=== PATIENT | female | born 1965 | race Caucasian/White ===

== ENCOUNTER → 2016-09-29 | Outpatient (CLI) | payer BC ==
--- NOTE | 2016-10-03 14:30 | MY ---
EXAMINATION: Bilateral digital mammography utilizing CAD. HISTORY: Screening exam. Comparison is made to previous studies dated 08/01/2011, 08/28/2012, 014, 09/19/2014. FINDINGS: Bilateral heterogeneously dense breast tissue. No suspicious calcifications, masses or architectural distortions. No pathologic appearing lymph nodes, no abnormal skin thickening or nip ple inversion. CAD highlighted regions appear normal at this time. IMPRESSION: BI-RADS category I - negative mammogram. Continued screening according to ACR-ACS gu idelines suggested. THE FALSE-NEGATIVE RATE OF MAMMOGRAM IS APPROXIMATELY 10%. MANAGEMENT OF A PALPABLE ABNORMALITY MUST BE BASED UPON CLINICAL GROUNDS. SENSITIVITY FOR DETECTION OF ABNORMALITIES IN DENSE BREASTS IS LOW. NOTE: A letter will be sent to the patient regarding findings. [facility] -- MAHI Barnhart [phone] - FAX [phone]
== END ==
LOC: MW.MAM 15:51
PROVIDERS: ATTEND Nurse Practitioner Women's Health
DX: Z12.31 Encounter for screening mammogram for malignant neoplasm of breast (principal)
CPT/HCPCS: G0202; G0202-26

== ENCOUNTER 2017-07-21 07:22 | Day surgery (SDC) | payer BC ==
[2017-07-21] MEDS ORDERED: Bupivacaine 25%/EPINEPHrine/PF 30 ML ONE (07:24)
[2017-07-21] MEDS ORDERED: Lidocaine 2% 5 ML SDV ONE (07:25)
[2017-07-21] MEDS ORDERED: Midazolam 1 MG/ML 2 ML SDV ONE (07:25)
[2017-07-21] MEDS ORDERED: Propofol 200 MG/20 ML SDV ONE (07:25)
[2017-07-21] MEDS ORDERED: fentaNYL 100 MCG/2 ML SDV ONE (07:25)
--- NOTE | 2017-07-21 07:53 | PCM.PREANE ---
Preanesthetic Assessment - Anesthesia/Transfusion/Family Hx Anesthesia History: Prior Anesthesia Without Reaction Family History of Anesthesia Reaction: No Transfusion History: No Prior Transfusion(s) Intubation History: Unknown - Review of Systems General: No Symptoms Pulmonary: No Symptoms Cardiovascular: No Symptoms Gastrointestinal: No Symptoms Neurological: No Symptoms Other: Reports: None - Physical Assessment Height: 1.5 m Weight: 48.534 kg ASA Class: 2 Mental Status: Alert & Oriented x3 Airway Class: Mallampati = 2 Dentition: Reports: Dentures (upper and lower) Thyro-Mental Finger Breadths: 3 Mouth Opening Finger Breadths: 3 ROM/Head Extension: Full Lungs: Clear to Auscultation, Normal Respiratory Effort Cardiovascular: Regular Rate, Regular Rhythm - Allergies Allergies/Adverse Reactions: Allergies Allergy/AdvReac Type Severity Reaction Status Date / Time Sulfa (Sulfonamide Allergy Hives Verified 07/19/17 07:52 Antibiotics) - Blood Blood Available: No - Anesthesia Plan Pre-Op Medication Ordered: None - Acknowledgements Anesthesia Type Planned: MAC Pt an Appropriate Candidate for the Planned Anesthesia: Yes Alternatives and Risks of Anesthesia Discussed w Pt/Guardian: Yes Pt/Guardian Understands and Agrees with Anesthesia Plan: Yes PreAnesthesia Questionnaire HEENT History: Reports: Allergic Rhinitis, Other (See Below) Other HEENT History: wears glasssess/contacts, has top and bottom denture Cardiovascular History: Reports: Hypertension Gastrointestinal History: Reports: GERD, Irritable Bowel Syndrome Genitourinary History: Reports: None 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: Psychiatric History: Reports: Anxiety, Depression - Past Surgical History Head Surgeries/Procedures: Reports: None GI Surgical History: Reports: Colonoscopy Female Surgical History: Reports: Section, Tubal Ligation - SUBSTANCE USE Smoking Status *Q: Current Every Day Smoker (< 1/2 ppd) Tobacco Use Within Last Twelve Months: Cigarettes Recreational Drug Use History: No - HOME MEDS Home Medications: Home Meds Diclofenac Sodium 1 applic TOP ASDIRECTED PRN 07/19/17 [History] Escitalopram Oxalate 5 mg PO DAILY 07/19/17 [History] Fexofenadine/Pseudoephedrine [Alisha-D 24 Hour Tablet] 1 tab PO ASDIRECTED PRN 07/19/17 [History] Loratadine/Pseudoephedrine [Claritin-D 24 Hour Tablet] 1 tab PO ASDIRECTED PRN 07/19/17 [History] Losartan Potassium 12.5 mg PO DAILY 07/19/17 [History] MV,Ca,Min/FA/Herbal Comp #223 [Estroven Mood & Memory Caplet] 1 tab PO DAILY [History] Pantoprazole Sodium 40 mg PO DAILY 07/19/17 [History] - CURRENT (IN HOUSE) MEDS Current Meds: Current Medications Hydrocodone Bitart/Acetaminophen (Sims 325-5 Mg) 1 tab PO Q4H PRN PRN Reason: Pain Bupivacaine HCl/Epinephrine Bitart (Marcaine 0.25%/Epinephrine 1:200,000) 10 ml INJECT ONETIME ONE Stop: 07/21/17 08:01 Cefazolin Sodium/Dextrose 2 gm (/ Premix) 50 mls @ 100 mls/hr IV ONETIME ONE Stop: 07/21/17 08:29 Lactated Ringer's (Ringers, Lactated) 1,000 mls @ 500 mls/hr IV .BOLUS KALE Discontinued Medications Fentanyl (Sublimaze) Confirm Administered Dose 100 mcg .ROUTE .STK-MED ONE Stop: 07/21/17 07:26 Bupivacaine HCl/Epinephrine Bitart (Sensorc Mpf 0.25%-Epi 1:[id number]) Confirm Administered Dose 30 mls @ as directed .ROUTE .STK-MED ONE Stop: 07/21/17 07:25 Lidocaine (Xylocaine-Mpf 2%) Confirm Administered Dose 5 ml .ROUTE .STK-MED ONE Stop: 07/21/17 07:26 Midazolam HCl (Versed 1 Mg/Ml) Confirm Administered Dose 2 mg .ROUTE .STK-MED ONE Stop: 07/21/17 07:26 Propofol (Diprivan 20 Ml) Confirm Administered Dose 400 mg .ROUTE .STK-MED ONE Stop: 07/21/17 07:26
[2017-07-21] MEDS ORDERED: Bupivacaine 0.25%/EPINEPHrine 1:200,000 10 ML SDV INJECT ONE (08:00)
[2017-07-21] MEDS ORDERED: ceFAZolin 2 GM in Premix Bag 1 BAG IV ONE (08:00)
[2017-07-21] MEDS ORDERED: Lactated Ringers 1,000 ML IV SCH (08:00)
[2017-07-21] MEDS ORDERED: Acetaminophen/HYDROcodone 325-5 MG Tab PO PRN (08:00)
--- NOTE | 2017-07-21 15:10 | PCM.OPNOTE ---
- General Post-Op/Procedure Note Date of Surgery/Procedure: 07/21/17 Operative Procedure(s): right carpal tunnel release Pre Op Diagnosis: right carpal tunnel Post-Op Diagnosis: Same Anesthesia Technique: Local, MAC Primary Surgeon: Hannah Bourgeois Labor Relations Worker: Brandie Mccollum Complications: None Condition: Good Free Text/Narrative:: Intake & Output 07/20/17 07/21/17 07/21/17 23:59 07:59 15:59 Intake Total 600 Balance 600
--- NOTE | 2017-07-25 22:03 | OR ---
SURGEON: MINNIE ANTOINE MD DATE OF PROCEDURE: 07/21/2017 PREOPERATIVE DIAGNOSIS: Right carpal tunnel syndrome. POSTOPERATIVE DIAGNOSIS: Right carpal tunnel syndrome. PROCEDURE: Right carpal tunnel release. POLE PEELING MACHINE OPERATOR HELPER: MEGAN Mccloud REASON POLE PEELING MACHINE OPERATOR HELPER WAS NECESSARY: Retraction, prepping, draping, and closure assistance. ANESTHESIA: Local MAC. INDICATIONS: Ms. Christianson is a 52-year-old female, seen today for right carpal tunnel syndrome. Risks and benefits of release were discussed and she was in agreement to proceed. Risks were including, but not limited to, bleeding, infection, damage to underlying or overlying structures, possible need for future interventions, possible scarring. PROCEDURE IN DETAIL: After informed consent was obtained and placed on the chart, the patient was brought to the operating theater and laid in the supine position. After adequate local MAC anesthesia was obtained, the area was prepped and draped, and a time-out was completed to confirm side and site. Attention was then paid to exsanguination and insufflation of the tourniquet to 200 mmHg. Attention was then paid to dissection of the transverse carpal ligament, and dissection was carried through the skin and subcutaneous tissues using #15 blade until reach of the ligament. Dissection was then carried distally and proximally until complete release. Once adequately released, attention was paid to irrigation and then closure using a 5-0 nylon stitch in a horizontal mattress fashion. The wound was dressed with Xeroform fluffs and a Kerlix gauze dressing and a 2-inch Zeferino wrap. The patient tolerated this well. All counts and needles were correct at the end of the case. FOLLOWUP INSTRUCTIONS: The patient will see us in clinic in 10 to 14 days, sooner if any problems, questions, or concerns. MADHURI / JATIN /[id number]
== END 2017-07-21 10:15 | disposition home or self-care (01) ==
LOC: MW.SDS 07:22
PROVIDERS: ATTEND Plastic Surgery
DX: G56.01 Carpal tunnel syndrome, right upper limb (principal); F41.8 Other specified anxiety disorders; K21.9 Gastro-esophageal reflux disease without esophagitis; I10 Essential (primary) hypertension; Z88.2 Allergy status to sulfonamides; J30.2 Other seasonal allergic rhinitis; Z79.899 Other long term (current) drug therapy; F17.200 Nicotine dependence, unspecified, uncomplicated
CPT/HCPCS: 64721; J2250; J3010; J7120; 01810; J2704

== ENCOUNTER 2017-08-04 06:16 | Day surgery (SDC) | payer BC ==
[2017-08-04] MEDS ORDERED: Bupivacaine 25%/EPINEPHrine/PF 0 ML ONE (07:20)
--- NOTE | 2017-08-04 07:20 | PCM.PREANE ---
Preanesthetic Assessment - Anesthesia/Transfusion/Family Hx Anesthesia History: Prior Anesthesia Without Reaction Family History of Anesthesia Reaction: No Transfusion History: No Prior Transfusion(s) Intubation History: Unknown - Review of Systems General: No Symptoms Pulmonary: No Symptoms Cardiovascular: No Symptoms Gastrointestinal: No Symptoms Neurological: No Symptoms Other: Reports: None - Physical Assessment NPO Status Date: 08/03/17 NPO Status Time: 22:00 O2 Sat by Pulse Oximetry: 98 Respiratory Rate: 14 Vital Signs: Last Vital Signs Temp 36.7 C 08/04/17 06:30 Pulse 73 08/04/17 06:30 Resp 14 08/04/17 06:30 BP 133/64 08/04/17 06:30 Pulse Ox 98 08/04/17 06:30 Height: 1.5 m Weight: 48.534 kg ASA Class: 2 Mental Status: Alert & Oriented x3 Airway Class: Mallampati = 1 Dentition: Reports: Dentures ROM/Head Extension: Full Lungs: Clear to Auscultation, Normal Respiratory Effort Cardiovascular: Regular Rate, Regular Rhythm - Allergies Allergies/Adverse Reactions: Allergies Allergy/AdvReac Type Severity Reaction Status Date / Time Sulfa (Sulfonamide Allergy Hives Verified 08/03/17 08:47 Antibiotics) - Anesthesia Plan Pre-Op Medication Ordered: None - Acknowledgements Anesthesia Type Planned: MAC Pt an Appropriate Candidate for the Planned Anesthesia: Yes Alternatives and Risks of Anesthesia Discussed w Pt/Guardian: Yes Pt/Guardian Understands and Agrees with Anesthesia Plan: Yes PreAnesthesia Questionnaire HEENT History: Reports: Allergic Rhinitis, Other (See Below) Other HEENT History: wears glasssess/contacts, has top and bottom denture Cardiovascular History: Reports: Hypertension Gastrointestinal History: Reports: GERD, Irritable Bowel Syndrome Genitourinary History: Reports: None 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: Musculoskeletal History: Reports: None Neurological History: Reports: None Psychiatric History: Reports: Anxiety, Depression Endocrine/Metabolic History: Reports: None Hematologic History: Reports: None Immunologic History: Reports: None Oncologic (Cancer) History: Reports: None Dermatologic History: Reports: None - Past Surgical History Head Surgeries/Procedures: Reports: None GI Surgical History: Reports: Colonoscopy Female Surgical History: Reports: Section, Tubal Ligation Musculoskeletal Surgical History: Reports: Carpal Tunnel - SUBSTANCE USE Smoking Status *Q: Current Every Day Smoker Tobacco Use Within Last Twelve Months: Cigarettes Recreational Drug Use History: No - HOME MEDS Home Medications: Home Meds Diclofenac Sodium 1 applic TOP ASDIRECTED PRN 07/19/17 [History] Escitalopram Oxalate 5 mg PO DAILY 07/19/17 [History] Fexofenadine/Pseudoephedrine [Alisha-D 24 Hour Tablet] 1 tab PO ASDIRECTED PRN 07/19/17 [History] Loratadine/Pseudoephedrine [Claritin-D 24 Hour Tablet] 1 tab PO ASDIRECTED PRN 07/19/17 [History] Losartan Potassium 12.5 mg PO DAILY 07/19/17 [History] MV,Ca,Min/FA/Herbal Comp #223 [Estroven Mood & Memory Caplet] 1 tab PO DAILY [History] Pantoprazole Sodium 40 mg PO DAILY 07/19/17 [History] - CURRENT (IN HOUSE) MEDS Current Meds: Current Medications Hydrocodone Bitart/Acetaminophen (Roy 325-5 Mg) 1 tab PO Q4H PRN PRN Reason: Pain Bupivacaine HCl/Epinephrine Bitart (Marcaine 0.25%/Epinephrine 1:200,000) 10 ml INJECT ONETIME ONE Stop: 08/04/17 08:01 Cefazolin Sodium/Dextrose 2 gm (/ Premix) 50 mls @ 100 mls/hr IV ONETIME ONE Stop: 08/04/17 08:29 Lactated Ringer's (Ringers, Lactated) 1,000 mls @ 500 mls/hr IV .BOLUS KALE
[2017-08-04] MEDS ORDERED: Bupivacaine 25%/EPINEPHrine/PF 30 ML ONE (07:27)
[2017-08-04] MEDS ORDERED: Midazolam 1 MG/ML 2 ML SDV ONE (07:28)
[2017-08-04] MEDS ORDERED: Propofol 200 MG/20 ML SDV ONE (07:28)
[2017-08-04] MEDS ORDERED: Lidocaine 2% 5 ML SDV ONE (07:28)
[2017-08-04] MEDS ORDERED: ceFAZolin/Dextrose,Iso-Osmotic 2 GM/50 ML Duplex Bag IV ONE (07:29)
[2017-08-04] MEDS ORDERED: fentaNYL 100 MCG/2 ML SDV ONE (07:31)
[2017-08-04] MEDS ORDERED: Ondansetron 4 MG/2 ML SDV ONE (07:45)
[2017-08-04] MEDS ORDERED: Ketorolac 30 MG/ML SDV ONE (07:45)
[2017-08-04] MEDS ORDERED: Lactated Ringers 1,000 ML IV SCH (08:00)
[2017-08-04] MEDS ORDERED: Acetaminophen/HYDROcodone 325-5 MG Tab PO PRN (08:00)
[2017-08-04] MEDS ORDERED: Bupivacaine 0.25%/EPINEPHrine 1:200,000 10 ML SDV INJECT ONE (08:00)
[2017-08-04] MEDS ORDERED: ceFAZolin 2 GM in Premix Bag 1 BAG IV ONE (08:00)
[2017-08-04] MEDS ORDERED: fentaNYL 100 MCG/2 ML SDV IVPUSH PRN (08:33)
--- NOTE | 2017-08-04 10:38 | PCM48HPAN ---
Post Anesthesia Note - EVALUATION WITHIN 48HRS OF ANESTHETIC Vital Signs in Normal Range: Yes Patient Participated in Evaluation: Yes Respiratory Function Stable: Yes Airway Patent: Yes Cardiovascular Function Stable: Yes Hydration Status Stable: Yes Pain Control Satisfactory: Yes Nausea and Vomiting Control Satisfactory: Yes Mental Status Recovered: Yes Resp Rate: 12
--- NOTE | 2017-08-04 10:38 | PCM.POSTAN ---
POST ANESTHESIA ASSESSMENT - MENTAL STATUS Mental Status: Alert, Oriented - RESPIRATORY Respiratory Status: Respiratory Rate WNL, Airway Patent, O2 Saturation Stable - CARDIOVASCULAR CV Status: Pulse Rate WNL, Blood Pressure Stable - GASTROINTESTINAL GI Status: No Symptoms - POST OP HYDRATION Hydration Status: Adequate & Stable
--- NOTE | 2017-08-04 11:46 | PCM.OPNOTE ---
- General Post-Op/Procedure Note Date of Surgery/Procedure: 08/04/17 Operative Procedure(s): left carpal tunnel release Pre Op Diagnosis: left carpal tunnel syndrome Post-Op Diagnosis: Same Anesthesia Technique: Local, MAC Primary Surgeon: Hannah Bourgeois Home Care Coordinator: Brandie Mccollum Complications: None Condition: Good Free Text/Narrative:: Intake & Output 08/03/17 08/04/17 08/04/17 23:59 07:59 15:59 Intake Total 1300 Balance 1300
--- NOTE | 2017-08-04 22:36 | OR ---
SURGEON: MINNIE ANTOINE MD DATE OF PROCEDURE: 08/04/2017 PREOPERATIVE DIAGNOSIS: Left carpal tunnel syndrome. POSTOPERATIVE DIAGNOSIS: Left carpal tunnel syndrome. PROCEDURE: Left carpal tunnel release. PROCESS CONTROL SPECIALIST: MEGAN Mccloud Reason is anesthesia assistant is prepping, draping, and closure assistance. ANESTHESIA: Local MAC. INDICATIONS: Ms. Stratton is a 52-year-old female who has previously had release on the right side. She is here for the left carpal tunnel release. Risks and benefits were discussed with her including, but not limited to, bleeding, infection, damage to underlying or overlying structures, possible need for future interventions, possible scarring. PROCEDURE IN DETAIL: After informed consent was obtained and placed on the chart, the patient was brought to operating theater and laid in the supine position. After adequate local MAC anesthesia was obtained, the area was prepped and draped, and a time- out was completed to confirm side and site. The arm was exsanguinated. The tourniquet was insufflated to 200 mmHg. A 15 blade was then used to dissect through skin and subcutaneous tissues under direct visualization. Once breached, the dissection was carried distally and proximally under continued direct visualization. Once adequately released, the area was irrigated and closed using a 5-0 nylon stitch in a horizontal mattress fashion. The wound was dressed with Xeroform fluffs and a Kerlix gauze dressing and a 2-inch Zeferino wrap. The patient tolerated this well. All counts and needles were correct at the end of the case. FOLLOWUP INSTRUCTIONS: The patient will see us in 10 to 14 days, sooner if any problems, questions, or concerns. MADHURI / JATIN /[id number]
== END 2017-08-04 09:35 | disposition home or self-care (01) ==
LOC: MW.SDS 06:16
PROVIDERS: ATTEND Plastic Surgery
DX: G56.02 Carpal tunnel syndrome, left upper limb (principal); F41.8 Other specified anxiety disorders; K21.9 Gastro-esophageal reflux disease without esophagitis; I10 Essential (primary) hypertension; M75.41 Impingement syndrome of right shoulder; N95.1 Menopausal and female climacteric states; J01.90 Acute sinusitis, unspecified; J30.2 Other seasonal allergic rhinitis; F17.210 Nicotine dependence, cigarettes, uncomplicated; Z88.2 Allergy status to sulfonamides; Z79.899 Other long term (current) drug therapy; Z98.51 Tubal ligation status
CPT/HCPCS: 64721; J0690; J1885; J2250; J2405; J3010; J7120; 01810; J2704

== ENCOUNTER 2019-10-30 06:51 | Day surgery (SDC) | payer BC, OTHER ==
[~2019-10-30 06:51] MED LIST: Lactated Ringers 1,000 ML IV SCH
[2019-10-30] MEDS ORDERED: fentaNYL 100 MCG/2 ML SDV ONE ×2 (07:14→09:14)
[2019-10-30] MEDS ORDERED: Propofol 200 MG/20 ML SDV ONE (07:14)
[2019-10-30] MEDS ORDERED: Midazolam 1 MG/ML 2 ML SDV ONE (07:15)
[2019-10-30] MEDS ORDERED: Lidocaine 2% 5 ML SDV ONE (07:17)
--- NOTE | 2019-10-30 07:24 | PCM.PREANE ---
Preanesthetic Assessment - Anesthesia/Transfusion/Family Hx Anesthesia History: Prior Anesthesia Without Reaction Family History of Anesthesia Reaction: No Transfusion History: No Prior Transfusion(s) Intubation History: Unknown - Review of Systems General: No Symptoms Pulmonary: No Symptoms Cardiovascular: No Symptoms Gastrointestinal: No Symptoms Neurological: No Symptoms Other: Reports: None - Physical Assessment Height: 4 ft 11 in Weight: 52.617 kg ASA Class: 3 Mental Status: Alert & Oriented x3 Airway Class: Mallampati = 2 Dentition: Reports: Dentures (upper and lower) Thyro-Mental Finger Breadths: 3 Mouth Opening Finger Breadths: 3 ROM/Head Extension: Full Lungs: Clear to Auscultation, Normal Respiratory Effort Cardiovascular: Regular Rate, Regular Rhythm - Allergies Allergies/Adverse Reactions: Allergies Allergy/AdvReac Type Severity Reaction Status Date / Time Sulfa (Sulfonamide Allergy Hives Verified 10/25/19 10:51 Antibiotics) - Blood Blood Available: No - Anesthesia Plan Pre-Op Medication Ordered: None - Acknowledgements Anesthesia Type Planned: General Anesthesia Pt an Appropriate Candidate for the Planned Anesthesia: Yes Alternatives and Risks of Anesthesia Discussed w Pt/Guardian: Yes Pt/Guardian Understands and Agrees with Anesthesia Plan: Yes PreAnesthesia Questionnaire HEENT History: Reports: Allergic Rhinitis, Other (See Below) Other HEENT History: wears glasssess/contacts, has top and bottom denture Cardiovascular History: Reports: High Cholesterol, Hypertension Gastrointestinal History: Reports: GERD, Irritable Bowel Syndrome, Other (See Below) (h/o elevated LFt's) Genitourinary History: Reports: None 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: Musculoskeletal History: Reports: None Neurological History: Reports: None Psychiatric History: Reports: Anxiety, Depression, Suicide Attempt Endocrine/Metabolic History: Reports: None Hematologic History: Reports: None Immunologic History: Reports: None Oncologic (Cancer) History: Reports: None Dermatologic History: Reports: None - Past Surgical History Head Surgeries/Procedures: Reports: None GI Surgical History: Reports: Colonoscopy () Female Surgical History: Reports: Section, Tubal Ligation Musculoskeletal Surgical History: Reports: Carpal Tunnel - SUBSTANCE USE Smoking Status *Q: Current Every Day Smoker (1/2 ppd) Tobacco Use Within Last Twelve Months: Cigarettes Days Per Week of Alcohol Use: 7 Recreational Drug Use History: No - HOME MEDS Home Medications: Home Meds Escitalopram Oxalate 10 mg PO DAILY 02/14/18 [History] Fexofenadine/Pseudoephedrine [Alisha-D 24 Hour Tablet] 1 tab PO ASDIRECTED PRN 07/19/17 [History] Losartan Potassium 25 mg PO QAM 07/19/17 [History] MV,Ca,Min/FA/Herbal Comp #223 [Estroven Mood and Memory Cplt] 1 tab PO DAILY [History] Pantoprazole Sodium 40 mg PO DAILY 07/19/17 [History] - CURRENT (IN HOUSE) MEDS Current Meds: Current Medications Cefazolin Sodium/Dextrose 1 gm (/ Premix) 50 mls @ 100 mls/hr IV ONETIME ONE Stop: 10/30/19 08:29 Lactated Ringer's (Ringers, Lactated) 1,000 mls @ 125 mls/hr IV ASDIRECTED KALE Discontinued Medications Fentanyl (Sublimaze) Confirm Administered Dose 100 mcg .ROUTE .STK-MED ONE Stop: 10/30/19 07:15 Lidocaine (Xylocaine-Mpf 2%) Confirm Administered Dose 5 ml .ROUTE .STK-MED ONE Stop: 10/30/19 07:18 Midazolam HCl (Versed 1 Mg/Ml) Confirm Administered Dose 2 mg .ROUTE .STK-MED ONE Stop: 10/30/19 07:16 Propofol (Diprivan 20 Ml) Confirm Administered Dose 200 mg .ROUTE .STK-MED ONE Stop: 10/30/19 07:15
[2019-10-30] MEDS ORDERED: Bupivacaine 0.5% 30 ML SDV ONE (07:31)
[2019-10-30] MEDS ORDERED: Lidocaine 1% 20 ML MDV ONE (07:32)
[2019-10-30] MEDS ORDERED: ceFAZolin 1 GM in Premix Bag 1 BAG IV ONE (08:00)
[2019-10-30] MEDS ORDERED: ePHEDrine 50 MG/ML SDV ONE (08:26)
[2019-10-30] MEDS ORDERED: Ondansetron 4 MG/2 ML SDV ONE (08:31)
[2019-10-30] MEDS ORDERED: Dexamethasone 4 MG/ML 5 ML MDV ONE (08:31)
[2019-10-30] MEDS ORDERED: Ketorolac 30 MG/ML SDV ONE (09:04)
[2019-10-30] MEDS ORDERED: Ondansetron 4 MG/2 ML SDV IVPUSH PRN (09:11)
[2019-10-30] MEDS ORDERED: fentaNYL 100 MCG/2 ML SDV IVPUSH PRN (09:12)
--- NOTE | 2019-10-30 09:57 | PCM.OPNOTE ---
- General Post-Op/Procedure Note Date of Surgery/Procedure: 10/30/19 Operative Procedure(s): excision of ganglion cyst left ankle Findings: consistent with diagnosis Pre Op Diagnosis: ganglion cyst left ankle Post-Op Diagnosis: ganglion cyst left ankle Anesthesia Technique: General LMA Primary Surgeon: Anton Ambrose Pathology: ganglion cyst tissue and fluid from left ankle EBL in mLs: 10 Complications: none Condition: Good Free Text/Narrative:: Intake & Output 10/29/19 10/30/19 10/30/19 22:59 06:59 14:59 Intake Total 950 Balance 950 materials: 4-0 vicryl, 4-0 Stratafix injectables: 6 ml 0.5% marcaine plain tourniquet time: 41 min
--- NOTE | 2019-10-30 10:10 | PCM.POSTAN ---
POST ANESTHESIA ASSESSMENT - MENTAL STATUS Mental Status: Alert, Oriented - VITAL SIGNS Vital Signs: Last Vital Signs Temp 36.2 C 10/30/19 09:27 Pulse 103 H 10/30/19 09:51 Resp 14 10/30/19 09:51 BP 145/80 H 10/30/19 09:51 Pulse Ox 98 10/30/19 09:51 - RESPIRATORY Respiratory Status: Respiratory Rate WNL, Airway Patent, O2 Saturation Stable - CARDIOVASCULAR CV Status: Pulse Rate WNL, Blood Pressure Stable - GASTROINTESTINAL GI Status: No Symptoms - PAIN Pain Score: 0 - POST OP HYDRATION Hydration Status: Adequate & Stable - OBSERVATIONS Free Text/Narrative:: No anesthesia problems.
[2019-10-30] MEDS ORDERED: Acetaminophen/HYDROcodone 325-5 MG Tab PO PRN (11:00)
--- NOTE | 2019-10-30 11:17 | PCM48HPAN ---
Post Anesthesia Note - EVALUATION WITHIN 48HRS OF ANESTHETIC Vital Signs in Normal Range: Yes Patient Participated in Evaluation: Yes Respiratory Function Stable: Yes Airway Patent: Yes Cardiovascular Function Stable: Yes Hydration Status Stable: Yes Pain Control Satisfactory: Yes Nausea and Vomiting Control Satisfactory: Yes Mental Status Recovered: Yes Vital Signs: Last Vital Signs Temp 36.2 C 10/30/19 10:00 Pulse 89 10/30/19 11:00 Resp 16 10/30/19 11:00 BP 140/73 10/30/19 11:00 Pulse Ox 98 10/30/19 11:00 - COMMENTS/OBSERVATIONS Free Text/Narrative:: No anesthesia problems
--- NOTE | 2019-10-30 13:03 | PN ---
IDENTIFICATION: The patient is a 54-year-old female. DATE OF SURGERY: October 30, 2019. PLANNED PROCEDURE: Excision of ganglionic cyst, left ankle. MEDICAL HISTORY: Active problems: 1. Abrasion, hand. 2. Alcoholism. 3. Allergic rhinitis. 4. Ankle pain. 5. Ankle swelling. 6. Anxiety. 7. Depression. 8. Edema. 9. Elevated liver function tests. 10.Elevated liver enzymes. 11.Ganglion cyst, left foot. 12.Gastroesophageal reflux disease. 13.Hot flashes, menopausal. 14.Hyperlipidemia. 15.Hypertension. 16.Immunizations due. 17.Otitis externa. 18.Preop clearance. 19.Spotting. 20.Tobacco use. ALLERGIES: Sulfa drugs and seasonal allergies. CURRENT MEDICATIONS: 1. Alisha 1 tablet daily. 2. Escitalopram oxalate 10 mg oral tablet, 1 tablet by mouth once daily. 3. Estrogen mood and memory oral tablet, 1 tablet daily. 4. Losartan potassium 25 mg oral tablet, take 1 tablet by mouth once daily. 5. Pantoprazole Sodium 40 mg oral tablet delayed release, take 1 tablet by mouth once daily. LABORATORY DATA: White blood cell 5.06, red blood cell 4.00, hemoglobin 13.6, hematocrit 39.7, platelets 263. INR 0.99. Partial thromboplastin time is 29.4. Sodium 132, potassium 4.6, chloride 94, CO2 of 27.5, random glucose 102, BUN 6, creatinine 0.6, calcium 9.4. EKG showed sinus rhythm and probable left atrial enlargement. Chest x-ray showed nothing acute. The patient was cleared for surgery by MEGAN Alvarado, and Sheila Prescott MD. The patient presents for surgery today and has consented in writing to the planned procedure of excision of ganglion cyst, left ankle. No guarantees have been expressed or implied. Risks and benefits have been discussed with the patient including return of the ganglion cyst and postoperative infection. SOMMER STEINER /[id number]
--- NOTE | 2019-10-31 04:48 | OR ---
SURGEON: Anton Ambrose DPM DATE OF PROCEDURE: 10/30/2019 PRIMARY SURGEON: Anton Ambrose DPM PREOPERATIVE DIAGNOSIS: Ganglion cyst, left ankle. POSTOPERATIVE DIAGNOSIS: Ganglion cyst, left ankle. OPERATIVE PROCEDURE: Excision of ganglion cyst, left ankle. ANESTHESIA: General. PATHOLOGY: Ganglion cyst tissue and fluid from left ankle. ESTIMATED BLOOD LOSS: 10 mL. HEMOSTASIS: Above ankle pneumatic tourniquet inflated to a pressure of 250 mmHg with a tourniquet time of 41 minutes. COMPLICATIONS: None seen. CONDITION: Good. MATERIALS: 4-0 Vicryl, 4-0 Stratafix. INJECTABLES: 6 mL of 0.5% Marcaine plain. JUSTIFICATION FOR THE PROCEDURE: The patient is a 54-year-old female who has repeatedly presented in my office with painful ganglion cyst to the left ankle lateral aspect over the lateral malleolus area, and on 2 occasions, I have aspirated fluid from the ganglion cyst in the office to provide relief to the patient; however, within a period of roughly 2 weeks, the cyst has repeatedly returned, and as a result in discussion with the patient, the patient has elected for surgical excision of the ganglion cyst with the understanding that this increases the probability though provides no guarantee of eliminating the ganglion cyst from being re-formed. All risks and benefits had been discussed with the patient and no guarantees expressed or implied. Written consent for the procedure, excision of ganglion cyst, left ankle was obtained from the patient and placed in the patient's chart. PROCEDURE IN DETAIL: The patient was brought to the operating room and placed on the operating table in a supine position. General anesthesia was administered. The left lower extremity was prepped and draped in the usual sterile manner. Time-out was performed verifying the correct surgical site and planned procedure. Marking pen was used to plan the incision, which was a 3 to 4 cm curvilinear incision over the lateral left ankle running over the center of the protruding palpable ganglion cyst. The Esmarch bandage was used to exsanguinate the left lower extremity and the tourniquet was inflated to a pressure of 250 mmHg. The Esmarch bandage was released. Incision was made and this was done with a #15 blade on a #3 handle and deepened through the skin and subcutaneous layer to expose the ganglion cyst with care taken to cut, clamp, or ligate any small bleeders. No significant neurovascular or tendinous structures were encountered. The ganglion cyst ruptured during the dissection process and a small syringe was used to obtain fluid from the ganglion cyst and the sac material that was identifiable was largely removed and a good portion of this was sent with the cyst fluid in a formalin container to be examined by Pathology. The area was flushed with normal sterile saline and reinspected, a bit more dissection material was performed, although there was very little cyst material left to be identified and removed. Again, the area was flushed with normal sterile saline and was closed in layered fashion. The subcutaneous layer reapproximated with 4-0 Vicryl suture and superficial skin with 4-0 Stratafix suture in a running subcuticular fashion. 6 mL of 0.5% Marcaine plain was injected about the surgical site. The tourniquet was deflated at a time of 41 minutes. The patient had a prompt hyperemic response to all digits of the left foot following deflation of the tourniquet. Bandaging was done in layered fashion with Betadine-soaked Xeroform gauze over the incision site followed by 4x4 fluff gauze, Kerlix roll, and bandages secured with an Zeferino bandage. The patient was transported from the operating room to the recovery room having tolerated the procedure well with no complications noted. She is receiving written instructions on followup and postoperative care. She does have Alpha prescription for pain, should she need it. SOMMER / JATIN /[id number] ANTONIA
== END 2019-10-30 11:30 | disposition home or self-care (01) ==
LOC: MW.SDS 06:51
PROVIDERS: ATTEND Podiatrist Foot & Ankle Surgery
DX: M67.472 Ganglion, left ankle and foot (principal); I10 Essential (primary) hypertension; E78.5 Hyperlipidemia, unspecified; K21.9 Gastro-esophageal reflux disease without esophagitis; F17.210 Nicotine dependence, cigarettes, uncomplicated; F10.20 Alcohol dependence, uncomplicated; F41.9 Anxiety disorder, unspecified; F32.9 Major depressive disorder, single episode, unspecified; E78.00 Pure hypercholesterolemia, unspecified; Z11.59 Encounter for screening for other viral diseases; Z88.2 Allergy status to sulfonamides; Z79.899 Other long term (current) drug therapy; Z98.890 Other specified postprocedural states
CPT/HCPCS: 27630; 87635; 88304; A9270; J0690; J1100; J1885; J2001; J2250; J2405; J2704; J3010; J3490; J7120; 01810; U0002

== ENCOUNTER 2020-04-20 06:30 | Day surgery (SDC) | payer BC ==
[2020-04-20] MEDS ORDERED: Propofol 200 MG/20 ML SDV ONE (07:07)
[2020-04-20] MEDS ORDERED: Rocuronium Bromide 50 MG/5 ML Syringe ONE ×2 (07:08→11:04)
[2020-04-20] MEDS ORDERED: Glycopyrrolate 0.2 MG/ML SDV ONE (07:08)
[2020-04-20] MEDS ORDERED: Lidocaine 2% 5 ML SDV ONE (07:08)
[2020-04-20] MEDS ORDERED: Ketorolac 30 MG/ML SDV ONE (07:08)
[2020-04-20] MEDS ORDERED: Ondansetron 4 MG/2 ML SDV ONE (07:08)
[2020-04-20] MEDS ORDERED: fentaNYL 100 MCG/2 ML SDV ONE ×3 (07:08→12:07)
[2020-04-20] MEDS ORDERED: Midazolam 1 MG/ML 2 ML SDV ONE (07:08)
[2020-04-20] MEDS ORDERED: Bupivacaine 0.5% 30 ML SDV ONE (07:30)
[2020-04-20] MEDS ORDERED: Bupivacaine 0.5% 10 ML SDV ONE (07:50)
[2020-04-20] MEDS ORDERED: ceFAZolin 2 GM in Premix Bag 1 BAG IV SCH (08:00)
[2020-04-20] MEDS ORDERED: Sodium Chloride 0.9% 40 ML ONE (09:38)
[2020-04-20] MEDS ORDERED: ceFAZolin 1 GM Vial ONE ×2 (09:38→10:07)
[2020-04-20] MEDS ORDERED: Dexamethasone 4 MG/ML 5 ML MDV ONE (09:49)
--- NOTE | 2020-04-20 09:54 | PCM.PREANE ---
Preanesthetic Assessment - Anesthesia/Transfusion/Family Hx Anesthesia History: Prior Anesthesia Without Reaction Family History of Anesthesia Reaction: No Transfusion History: No Prior Transfusion(s) Intubation History: Unknown - Review of Systems General: No Symptoms Pulmonary: No Symptoms Cardiovascular: No Symptoms Gastrointestinal: No Symptoms Neurological: No Symptoms Other: Reports: None - Physical Assessment Height: 4 ft 11 in Weight: 53.07 kg ASA Class: 2 Mental Status: Alert & Oriented x3 Airway Class: Mallampati = 2 Dentition: Reports: Dentures (upper and lower) Thyro-Mental Finger Breadths: 3 Mouth Opening Finger Breadths: 3 ROM/Head Extension: Full Lungs: Clear to Auscultation, Normal Respiratory Effort Cardiovascular: Regular Rate, Regular Rhythm - Allergies Allergies/Adverse Reactions: Allergies Allergy/AdvReac Type Severity Reaction Status Date / Time Sulfa (Sulfonamide Allergy Hives Verified 04/14/20 10:53 Antibiotics) - Blood Blood Available: No - Anesthesia Plan Pre-Op Medication Ordered: None - Acknowledgements Anesthesia Type Planned: General Anesthesia (interscalene brachial plexus block for postoperative pain control) Pt an Appropriate Candidate for the Planned Anesthesia: Yes Alternatives and Risks of Anesthesia Discussed w Pt/Guardian: Yes Pt/Guardian Understands and Agrees with Anesthesia Plan: Yes PreAnesthesia Questionnaire HEENT History: Reports: Allergic Rhinitis, Other (See Below) Other HEENT History: wears glasssess/contacts, has top and bottom denture Cardiovascular History: Reports: Hypertension Respiratory History: Reports: None Gastrointestinal History: Reports: GERD, Irritable Bowel Syndrome Genitourinary History: Reports: None 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: Musculoskeletal History: Reports: Other (See Below) (left proximal humerus fx.) Neurological History: Reports: None Psychiatric History: Reports: Anxiety, Depression, Suicide Attempt Endocrine/Metabolic History: Reports: None Hematologic History: Reports: None Immunologic History: Reports: None Oncologic (Cancer) History: Reports: None Dermatologic History: Reports: None - Infectious Disease History Infectious Disease History: Reports: None - Past Surgical History Head Surgeries/Procedures: Reports: None HEENT Surgical History: Reports: None Cardiovascular Surgical History: Reports: None Respiratory Surgical History: Reports: None GI Surgical History: Reports: Colonoscopy Female Surgical History: Reports: Section, Tubal Ligation Endocrine Surgical History: Reports: None Neurological Surgical History: Reports: None Musculoskeletal Surgical History: Reports: Carpal Tunnel (bilateral), Other (See Below) Other Musculoskeletal Surgeries/Procedures:: excision of ganglion cyst-left ankle Oncologic Surgical History: Reports: None - SUBSTANCE USE Tobacco Use Status *Q: Current Every Day Tobacco User (1 ppd) Tobacco Use Within Last Twelve Months: Cigarettes Days Per Week of Alcohol Use: 7 Number of Drinks Per Day: 2 Total Drinks Per Week: 14 - HOME MEDS Home Medications: Home Meds Escitalopram Oxalate 10 mg PO DAILY 07/19/17 [History] Losartan Potassium 50 mg PO QAM 07/19/17 [History] MV,Ca,Min/FA/Herbal Comp #223 [Estroven Mood and Memory Cplt] 1 tab PO DAILY 07/19/17 [History] Pantoprazole Sodium 40 mg PO DAILY 07/19/17 [History] Acetaminophen [Tylenol Extra Strength] 2 tab PO ASDIRECTED PRN 04/14/20 [History] Cetirizine HCl [Zyrtec] 10 mg PO DAILY PRN 04/14/20 [History] Hydrocodone/Acetaminophen [Hydrocodon-Acetaminoph 7.5-325] 1 each PO ASDIRECTED PRN 04/14/20 [History] - CURRENT (IN HOUSE) MEDS Current Meds: Current Medications Lactated Ringer's (Ringers, Lactated) 1,000 mls @ 100 mls/hr IV ASDIRECTED KALE Cefazolin Sodium/Dextrose 2 gm (/ Premix) 50 mls @ 100 mls/hr IV ONCALL KALE Discontinued Medications Bupivacaine HCl (Marcaine 0.5%) Confirm Administered Dose 30 ml .ROUTE .STK-MED ONE Stop: 04/20/20 07:31 Bupivacaine HCl (Sensorcaine-Mpf 0.5%) Confirm Administered Dose 10 ml .ROUTE .STK-MED ONE Stop: 04/20/20 07:51 Cefazolin Sodium (Ancef) Confirm Administered Dose 2 gm .ROUTE .STK-MED ONE Stop: 04/20/20 09:39 Fentanyl (Sublimaze) Confirm Administered Dose 100 mcg .ROUTE .STK-MED ONE Stop: 04/20/20 07:09 Glycopyrrolate (Robinul) Confirm Administered Dose 0.8 mg .ROUTE .STK-MED ONE Stop: 04/20/20 07:09 Sodium Chloride (Normal Saline) Confirm Administered Dose 40 mls @ as directed .ROUTE .STK-MED ONE Stop: 04/20/20 09:39 Ketorolac Tromethamine (Toradol) Confirm Administered Dose 30 mg .ROUTE .STK-MED ONE Stop: 04/20/20 07:09 Lidocaine (Xylocaine-Mpf 2%) Confirm Administered Dose 5 ml .ROUTE .STK-MED ONE Stop: 04/20/20 07:09 Midazolam HCl (Versed 1 Mg/Ml) Confirm Administered Dose 4 mg .ROUTE .STK-MED ONE Stop: 04/20/20 07:09 Ondansetron HCl (Zofran) Confirm Administered Dose 4 mg .ROUTE .STK-MED ONE Stop: 04/20/20 07:09 Propofol (Diprivan 20 Ml) Confirm Administered Dose 200 mg .ROUTE .STK-MED ONE Stop: 04/20/20 07:08 Rocuronium Gilliam (Rocuronium Gilliam) Confirm Administered Dose 50 mg .ROUTE .STK-MED ONE Stop: 04/20/20 07:09
[2020-04-20] MEDS ORDERED: Acetaminophen 1,000 MG in Premix Bag 1 BAG IV PRN (11:07)
--- NOTE | 2020-04-20 12:35 | PCM.OPNOTE ---
- General Post-Op/Procedure Note Date of Surgery/Procedure: 04/20/20 Operative Procedure(s): Open reduction and internal fixation of left proximal humerus fracture with Hulbert proximal humerus locking plate Findings: Displaced, comminuted left surgical neck proximal humerus fracture Pre Op Diagnosis: Displaced, comminuted left surgical neck proximal humerus fracture Post-Op Diagnosis: Displaced, comminuted left surgical neck proximal humerus fracture Anesthesia Technique: General ET Tube, Regional Block Primary Surgeon: Rolando Llanos Secondary Surgeon: Shady Cifuentes (Observation for part of the surgical case) Burrer Hand: Deepali Agustin Reason Burrer Hand Was Necessary: Retraction and arm positioning Pathology: None EBL in mLs: 100 Complications: None Free Text/Narrative:: The risks and benefits of open reduction and internal fixation versus nonoperative management for a proximal humerus fracture were discussed with the patient. Patient consented to proceed with surgery. Patient was medically cleared for surgery. Patient was taken to the operating room. A interscalene block was placed and then the patient received general anesthesia through endotracheal tube. She was then placed in a beachchair position. The left shoulder and upper extremity were prepped and draped in the usual sterile manner. A longitudinal incision was made directly over the deltopectoral interval. Skin was incised with a scalpel. Subcutaneous tissue was incised electrocautery. The deltopectoral interval was opened with Metzenbaum scissors and the cephalic vein retracted medially. A custom Gabbie retractor was placed in the subdeltoid space for retraction. Callus was removed with a rongeur. A K wire was placed in the humeral head as a joystick to reduce the head fragment. With the head fragment internally rotated and the shaft reduced, a 3-hole proximal humerus locking plate was placed on the proximal humerus in appropriate position. A conventional bicortical screw was placed in the proximal shaft hole. The locking screw was placed in the head. C arm view showed good alignment and there was a medial head fragment in the proximal metaphysis so this was reduced with a lag screw through the plate. Adequate reduction was noted and multiple locking screws were placed in the humeral head. 2 additional bicortical conventional screws were placed in the distal shaft plate holes. C arm confirmed reduction on biplanar views. The wounds were irrigated. The deltopectoral interval was closed with interrupted #1 Vicryl sutures. Subcutaneous tissue was closed with interrupted 2-0 Vicryl sutures. Running subcuticular stitch for final skin closure. A sterile dressing was applied and patient was placed back in her sling and accompanied to the recovery room in stable condition. Pain management: Ibuprofen, acetaminophen, oxycodone. Prophylactic antibiotics: Not indicated for outpatient procedure. Venous thromboembolism prophylaxis: Not indicated for upper extremity procedure. Restrictions: Patient is nonweightbearing on her left upper extremity for 3 months. She should be in a sling and do pendulum exercises only for the first 6 weeks. From 6 weeks to 12 weeks she may do active range of motion but no lifting greater than 1 pound. At 3 months, she will begin rotator cuff strengthening.
[2020-04-20] MEDS: fentaNYL 100 MCG/2 ML SDV IVPUSH PRN ×2 (12:45→12:52)
--- NOTE | 2020-04-20 13:03 | PCM.POSTAN ---
POST ANESTHESIA ASSESSMENT - MENTAL STATUS Mental Status: Alert, Oriented - VITAL SIGNS Vital Signs: Last Vital Signs Temp 36.4 C 04/20/20 12:21 Pulse 96 04/20/20 12:58 Resp 15 04/20/20 12:58 BP 149/80 H 04/20/20 12:58 Pulse Ox 97 04/20/20 12:58 - RESPIRATORY Respiratory Status: Respiratory Rate WNL, Airway Patent, O2 Saturation Stable - CARDIOVASCULAR CV Status: Pulse Rate WNL, Blood Pressure Stable - GASTROINTESTINAL GI Status: No Symptoms - PAIN Pain Score: 5 - POST OP HYDRATION Hydration Status: Adequate & Stable - OBSERVATIONS Free Text/Narrative:: No anesthesia problems
[2020-04-20] MEDS ORDERED: oxyCODONE 5 MG Tab PO ONE (13:40)
[2020-04-20] MEDS ORDERED: oxyCODONE 5 MG Tab ONE (13:44)
--- NOTE | 2020-04-20 14:30 | PCM48HPAN ---
Post Anesthesia Note - EVALUATION WITHIN 48HRS OF ANESTHETIC Vital Signs in Normal Range: Yes Patient Participated in Evaluation: Yes Respiratory Function Stable: Yes Airway Patent: Yes Cardiovascular Function Stable: Yes Hydration Status Stable: Yes Pain Control Satisfactory: Yes Nausea and Vomiting Control Satisfactory: Yes Mental Status Recovered: Yes Vital Signs: Last Vital Signs Temp 36.0 C L 04/20/20 13:15 Pulse 83 04/20/20 13:30 Resp 15 04/20/20 13:30 BP 171/67 H 04/20/20 13:30 Pulse Ox 98 04/20/20 13:30
--- NOTE | 2020-04-22 13:31 | CR ---
INDICATION: Fracture with open reduction internal fixation TECHNIQUE: Intraoperative C-arm fluoroscopy. IMPRESSION: Intraoperative C-arm fluoroscopy was provided. Fluoroscopy time 6.8 seconds. Two images were captured. Dictated by Gustabo Go MD @ Apr 22 2020 1:27PM Signed by Dr. Gustabo Go @ Apr 22 2020 1:29PM
== END 2020-04-20 16:15 | disposition home or self-care (01) ==
LOC: MW.SDS 06:30
PROVIDERS: ATTEND Orthopaedic Surgery
DX: S42.212A Unspecified displaced fracture of surgical neck of left humerus, initial encounter for closed fracture (principal); F41.9 Anxiety disorder, unspecified; F32.9 Major depressive disorder, single episode, unspecified; E78.5 Hyperlipidemia, unspecified; I10 Essential (primary) hypertension; F17.200 Nicotine dependence, unspecified, uncomplicated; Z79.899 Other long term (current) drug therapy; Z88.2 Allergy status to sulfonamides; Z98.890 Other specified postprocedural states
CPT/HCPCS: 23615; A9270; C1713; J0131; J0690; J1100; J1885; J2001; J2250; J2405; J2704; J3010; J3490; J7120; 01630

== ENCOUNTER 2021-01-24 14:55 | Emergency (ER) | payer BC ==
[2021-01-24 17:15] LABS: BLOOD UREA NITROGEN,BUN 10 mg/dL (7.0-18.0); GLUCOSE RANDOM 119 mg/dL (74-106)
[2021-01-24 17:29] LABS: CHLORIDE,CL 91 mmol/L (98-107); POTASSIUM,K 3.5 mmol/L (3.5-5.1); SODIUM,NA 128 mmol/L (136-145)
--- NOTE | 2021-01-24 17:57 | EDM.PDOC ---
ED HPI GENERAL MEDICAL PROBLEM - General Chief Complaint: General Stated Complaint: FLU LIKE SYMPTOMS Time Seen by Provider: 01/24/21 15:22 Source of Information: Reports: Patient History Limitations: Reports: No Limitations - History of Present Illness INITIAL COMMENTS - FREE TEXT/NARRATIVE: HISTORY AND PHYSICAL: History of present illness: Patient is a 55-year-old female who presents emergency room today with concern of possible COVID-19 infection as she has had fatigue, fevers, decreased appetite over the past 1 week. Patient states when her symptoms first started she was tested for COVID-19 at her job but was negative. Patient states that she is vaccinated for COVID-19 but has continued to have symptoms throughout the week. Patient states that she has been having a difficult time working because she feels so tired and rundown that she does not feel capable of performing her job. Patient states that she has had low-grade fevers of 99-100 at home and states that she just feels "something is wrong". Patient states that she only wants Covid and influenza testing today as she feels that this is what she has and does not want to spread this at work. Patient states she is vaccinated for COVID-19 but still thinks that she may have this. Patient denies any health history. Patient denies chest pain, shortness of breath, or cough. Denies headache, neck stiff ness, change in vision, syncope, or near syncope. Denies nausea, vomiting, abdominal pain, diarrhea, constipation, or dysuria. Has not noted any blood in urine or stool. Patient has been eating and drinking appropriately. Review of systems: As per history of present illness and below otherwise all systems reviewed and negative. Past medical history: As per history of present illness and as reviewed below otherwise noncontributory. Surgical history: As per history of present illness and as reviewed below otherwise noncontributory. Social history: See social history for further information Family history: As per history of present illness and as reviewed below otherwise noncontributory. Physical exam: General: Patient is alert, oriented, and in no acute distress. Patient sitting comfortably on exam table. Vitals stable and reviewed by me. HEENT: Atraumatic, normocephalic, pupils equal and reactive bilaterally, negative for conjunctival pallor or scleral icterus, mucous membranes moist, TMs normal bilaterally, throat clear, neck supple, nontender, trachea midline. No drooling or trismus noted. No meningeal signs. No hot potato voice noted. Lungs: Clear to auscultation, breath sounds equal bilaterally, chest nontender. Heart: S1S2, regular rate and rhythm without overt murmur Abdomen: Soft, nondistended, nontender. Negative for masses or hepatosplenomegaly. Negative for costovertebral tenderness. Pelvis: Stable nontender. Genitourinary: Deferred. Rectal: Deferred. Skin: Intact, warm, dry. No lesions or rashes noted. Extremities: Atraumatic, negative for cords or calf pain. Neurovascular unremarkable. Neuro: Awake, alert, oriented. Cranial nerves II through XII unremarkable. Cerebellum unremarkable. Motor and sensory unremarkable throughout. Exam nonfocal. Notes: Patient is a 55-year-old female who presents emergency room secondary to decreased appetite, fever and chills, and fatigue over the past several days. Upon arrival to the ED, patient is vitally stable and tired appearing on exam but otherwise well and exam unremarkable. Patient states she would only like to know she has COVID-19 or influenza as she feels that she does have 1 of these. Will obtain the swabs. COVID-19 and influenza are negative. I did discuss with patient that there are other things that could be causing her symptoms and patient is agreeable to further evaluation. Will obtain basic lab work and two-view chest x-ray. Patient left the emergency room AGAINST MEDICAL ADVICE prior to lab work completion, or chest x-ray interpretation. The patient is clinically not intoxicated, free from distracting pain, appears to have intact insight, judgment and reason and in my medical opinion has the capacity to make decisions. The patient is also not under any duress to leave the hospital. In this scenario, it would be battery to subject a patient to treatment against his/her will. I have voiced my concerns for the patient's health given that a full evaluation and treatment had not occurred. I have discussed the need for continued evaluation to determine if their symptoms are caused by a condition that present risk of or morbidity. Risks including but not limited to , permanent disability, prolonged hospitalization, prolonged illness, were discussed. Because I have been unable to convince the patient to stay, I answered all of their questions about their condition and asked them to return to the ED as soon as possible to complete their evaluation, especially if their symptoms worsen or do not improve. I emphasized that leaving against medical advice does not preclude returning here for further evaluation. I asked the patient to return if they change their mind about the further evaluation and treatment. I strongly encouraged the patient to return to this E mergency Department or any Emergency Department at any time, particularly with worsening symptoms. CBC shows mild decreased red blood cells at 3.98, otherwise CBC unremarkable. CMP shows hyponatremia of 128, hypochloremia of 91, transaminitis with AST of 379, ALT 142, and alk phos of 135, urinalysis is clear for infection. Two-view chest x-ray shows findings suspicious for new infiltrate in the peripheral left midlung. All of these labs were not able to be discussed with patient and not able to discuss the two-view chest x-ray findings as patient left the ED AMA prior to discharge. Dr. Barnett verbally involved in patient care. I did send patient antibiotic to the pharmacy and will try to call patient in the morning to cone picker the prescription. Voices understanding and is agreeable to plan of care. Denies any further questions or concerns at this time. Diagnostics: CBC, CMP, urinalysis, COVID-19, influenza, chest x-ray two-view Therapeutics: None Prescription: Augmentin (patient left AMA prior to discharge) Impression: Hyponatremia Transaminitis Community-acquired pneumonia Plan: Patient left the emergency room prior to discharge AGAINST MEDICAL ADVICE Definitive disposition and diagnosis as appropriate pending reevaluation and review of above. - Related Data Allergies Allergy/AdvReac Type Severity Reaction Status Date / Time Sulfa (Sulfonamide Allergy Hives Verified 01/24/21 15:38 Antibiotics) Home Meds: Home Meds Escitalopram Oxalate 10 mg PO DAILY 07/19/17 [History] Losartan Potassium 50 mg PO QAM 07/19/17 [History] MV,Ca,Min/FA/Herbal Comp #223 [Estroven Mood and Memory Cplt] 1 tab PO DAILY 07/19/17 [History] Pantoprazole Sodium 40 mg PO DAILY 07/19/17 [History] Acetaminophen [Tylenol Extra Strength] 2 tab PO ASDIRECTED PRN 04/14/20 [History] Cetirizine HCl [Zyrtec] 10 mg PO DAILY PRN 04/14/20 [History] Ibuprofen 600 mg PO TID PRN #60 tablet 04/20/20 [Rx] oxyCODONE 5 mg PO Q6H PRN #20 tab 04/20/20 [Rx] Amoxicillin/Potassium Clav [Augmentin 875-125 Tablet] 1 each PO BID 7 Days #14 tablet 01/24/21 [Rx] Past Medical History HEENT History: Reports: Allergic Rhinitis, Other (See Below) Other HEENT History: wears glasssess/contacts, has top and bottom denture Cardiovascular History: Reports: Hypertension Respiratory History: Reports: None Gastrointestinal History: Reports: GERD, Irritable Bowel Syndrome Genitourinary History: Reports: None 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: Musculoskeletal History: Reports: None Neurological History: Reports: None Psychiatric History: Reports: Anxiety, Depression Endocrine/Metabolic History: Reports: None Hematologic History: Reports: None Immunologic History: Reports: None Oncologic (Cancer) History: Reports: None Dermatologic History: Reports: None - Infectious Disease History Infectious Disease History: Reports: None - Past Surgical History Head Surgeries/Procedures: Reports: None HEENT Surgical History: Reports: None Cardiovascular Surgical History: Reports: None Respiratory Surgical History: Reports: None GI Surgical History: Reports: Colonoscopy Female Surgical History: Reports: Section, Tubal Ligation Endocrine Surgical History: Reports: None Neurological Surgical History: Reports: None Musculoskeletal Surgical History: Reports: Carpal Tunnel, Other (See Below) Other Musculoskeletal Surgeries/Procedures:: excision of ganglion cyst-left ankle Oncologic Surgical History: Reports: None Social & Family History - Caffeine Use Caffeine Use: Reports: None - Recreational Drug Use Recreational Drug Use: No ED ROS GENERAL - Review of Systems Review Of Systems: Comprehensive ROS is negative, except as noted in HPI. ED EXAM, GENERAL - Physical Exam Exam: See Below Course - Vital Signs Last Recorded V/S: Last Vital Signs Temp 99.1 F 01/24/21 15:33 Pulse 88 01/24/21 15:33 Resp 20 01/24/21 15:33 BP 134/66 01/24/21 15:33 Pulse Ox 99 01/24/21 15:33 - Orders/Labs/Meds Labs: Laboratory Tests 01/24/21 01/24/21 01/24/21 Range/Units 15:31 16:40 16:45 WBC 9.56 (4.0-11.0) K/uL RBC 3.98 L (4.30-5.90) M/uL Hgb 14.1 (12.0-16.0) g/dL Hct 39.9 (36.0-46.0) % MCV 100.3 H (80.0-98.0) fL MCH 35.4 H (27.0-32.0) pg MCHC 35.3 (31.0-37.0) g/dL RDW Std Deviation 47.7 (28.0-62.0) fl RDW Coeff of Sonu 13 (11.0-15.0) % Plt Count 213 (150-400) K/uL MPV 9.70 (7.40-12.00) fL Neut % (Auto) 87.6 H (48.0-80.0) % Lymph % (Auto) 5.6 L (16.0-40.0) % Gem % (Auto) 6.6 (0.0-15.0) % Eos % (Auto) 0.1 (0.0-7.0) % Baso % (Auto) 0.1 (0.0-1.5) % Neut # (Auto) 8.4 H (1.4-5.7) K/uL Lymph # (Auto) 0.5 L (0.6-2.4) K/uL Gem # (Auto) 0.6 (0.0-0.8) K/uL Eos # (Auto) 0.0 (0.0-0.7) K/uL Baso # (Auto) 0.0 (0.0-0.1) K/uL Nucleated RBC % 0.0 /100WBC Nucleated RBCs # 0 K/uL Sodium (136-145) mmol/L Potassium (3.5-5.1) mmol/L Chloride (98-107) mmol/L Carbon Dioxide (21.0-32.0) mmol/L BUN (7.0-18.0) mg/dL Creatinine (0.6-1.0) mg/dL Est Cr Clr Drug Dosing mL/min Estimated GFR (MDRD) ml/min Glucose (74-106) mg/dL Calcium (8.5-10.1) mg/dL Total Bilirubin (0.2-1.0) mg/dL AST (15-37) IU/L ALT (14-63) IU/L Alkaline Phosphatase (46-116) U/L Total Protein (6.4-8.2) g/dL Albumin (3.4-5.0) g/dL Globulin (2.6-4.0) g/dL Albumin/Globulin Ratio (0.9-1.6) Urine Color YELLOW Urine Appearance CLEAR Urine pH 7.0 (5.0-8.0) Ur Specific [place] <= 1.005 (1.001-1.035) Urine Protein NEGATIVE (NEGATIVE) mg/dL Urine Glucose (UA) NEGATIVE (NEGATIVE) mg/dL Urine Ketones TRACE H (NEGATIVE) mg/dL Urine Occult Blood NEGATIVE (NEGATIVE) Urine Nitrite NEGATIVE (NEGATIVE) Urine Bilirubin NEGATIVE (NEGATIVE) Urine Urobilinogen 0.2 (<2.0) EU/dL Ur Leukocyte Esterase NEGATIVE (NEGATIVE) SARS-CoV-2 RNA (LYDIA) NEGATIVE (NEGATIVE) 01/24/21 Range/Units 16:45 WBC (4.0-11.0) K/uL RBC (4.30-5.90) M/uL Hgb (12.0-16.0) g/dL Hct (36.0-46.0) % MCV (80.0-98.0) fL MCH (27.0-32.0) pg MCHC (31.0-37.0) g/dL RDW Std Deviation (28.0-62.0) fl RDW Coeff of Sonu (11.0-15.0) % Plt Count (150-400) K/uL MPV (7.40-12.00) fL Neut % (Auto) (48.0-80.0) % Lymph % (Auto) (16.0-40.0) % Gem % (Auto) (0.0-15.0) % Eos % (Auto) (0.0-7.0) % Baso % (Auto) (0.0-1.5) % Neut # (Auto) (1.4-5.7) K/uL Lymph # (Auto) (0.6-2.4) K/uL Gem # (Auto) (0.0-0.8) K/uL Eos # (Auto) (0.0-0.7) K/uL Baso # (Auto) (0.0-0.1) K/uL Nucleated RBC % /100WBC Nucleated RBCs # K/uL Sodium 128 L (136-145) mmol/L Potassium 3.5 (3.5-5.1) mmol/L Chloride 91 L (98-107) mmol/L Carbon Dioxide 26.0 (21.0-32.0) mmol/L BUN 10 (7.0-18.0) mg/dL Creatinine 0.8 (0.6-1.0) mg/dL Est Cr Clr Drug Dosing 58.41 mL/min Estimated GFR (MDRD) > 60.0 ml/min Glucose 119 H (74-106) mg/dL Calcium 8.9 (8.5-10.1) mg/dL Total Bilirubin 0.6 (0.2-1.0) mg/dL AST 379 H (15-37) IU/L ALT 142 H (14-63) IU/L Alkaline Phosphatase 135 H (46-116) U/L Total Protein 7.3 (6.4-8.2) g/dL Albumin 3.3 L (3.4-5.0) g/dL Globulin 4.0 (2.6-4.0) g/dL Albumin/Globulin Ratio 0.8 L (0.9-1.6) Urine Color Urine Appearance Urine pH (5.0-8.0) Ur Specific [place] (1.001-1.035) Urine Protein (NEGATIVE) mg/dL Urine Glucose (UA) (NEGATIVE) mg/dL Urine Ketones (NEGATIVE) mg/dL Urine Occult Blood (NEGATIVE) Urine Nitrite (NEGATIVE) Urine Bilirubin (NEGATIVE) Urine Urobilinogen (<2.0) EU/dL Ur Leukocyte Esterase (NEGATIVE) SARS-CoV-2 RNA (LYDIA) (NEGATIVE) Departure - Departure Time of Disposition: 17:54 Disposition: Against Medical Advice 07 Clinical Impression: Hyponatremia, Transaminitis Community acquired pneumonia Qualifiers: Laterality: left Lung location: unspecified part of lung Qualified Code(s): J18.9 - Pneumonia, unspecified organism - Discharge Information Instructions: Hyponatremia, [id number] Referrals: Vianney Sidhu PA [Primary Care Provider] - Forms: ED Department Discharge Additional Instructions: The following information is given to patients seen in the emergency department who are being discharged to home. This information is to outline your options for follow-up care. We provide all patients seen in our emergency department with a follow-up referral. The need for follow-up, as well as the timing and circumstances, are variable depending upon the specifics of your emergency department visit. If you don't have a primary care physician on staff, we will provide you with a referral. We always advise you to contact your personal physician following an emergency department visit to inform them of the circumstance of the visit and for follow-up with them and/or the need for any referrals to a consulting specialist. The emergency department will also refer you to a specialist when appropriate. This referral assures that you have the opportunity for follow-up care with a specialist. All of these measure are taken in an effort to provide you with optimal care, which includes your follow-up. Under all circumstances we always encourage you to contact your private physician who remains a resource for coordinating your care. When calling for follow-up care, please make the office aware that this follow-up is from your recent emergency room visit. If for any reason you are refused follow-up, please contact the Emergency Department at and asked to speak to the emergency department charge nurse. [facility] [address] [place] [address] [address] 1. Follow-up with a primary care provider as discussed. Return to the ED as needed and as discussed. 2. Restrict water intake until you can see your primary care provider tomorrow. Encourage you to return to the room for complete evaluation and treatment at any time. Sepsis Event Note (ED) - Evaluation Sepsis Screening Result: No Definite Risk - Focused Exam Vital Signs: Vital Signs Temp Pulse Resp BP Pulse Ox 01/24/21 15:33 99.1 F 88 20 134/66 99
--- NOTE | 2021-01-24 18:09 | CR ---
INDICATION: Fever, cough. COVID negative. TECHNIQUE: Chest radiograph 2 views COMPARISON: 10/22/2019 FINDINGS: Cardiovascular and mediastinum: The heart silhouette is normal in size and morphology. The mediastinum is normal in appearance. Lungs and pleural spaces: On the PA view, new patchy infiltrates suspected in the peripheral left midlung zone. Right hemithorax remains clear. No pleural effusions, pleural thickening, or pneumothorax. Bones and soft tissues: No significant findings. IMPRESSION: 1. Findings suspicious for new infiltrate in the peripheral left midlung zone. Interval change from October 2019. Dictated by Jesus Sanford MD @ 01/24/2021 6:08:[address] Jesus Sanford @ Jan 24 2021 6:08PM
== END 2021-01-24 18:03 | disposition left against medical advice (07) ==
LOC: MW.ED 14:55
DX: J18.9 Pneumonia, unspecified organism (principal); E87.1 Hypo-osmolality and hyponatremia; R74.01 Elevation of levels of liver transaminase levels; I10 Essential (primary) hypertension; K21.9 Gastro-esophageal reflux disease without esophagitis; Z20.822 Contact with and (suspected) exposure to COVID-19; Z88.2 Allergy status to sulfonamides; Z79.899 Other long term (current) drug therapy
CPT/HCPCS: 36415; 71046; 71046-26; 80053; 81003; 85025; 87804; 99283-25; U0002

== ENCOUNTER 2021-01-25 09:35 | Inpatient (IN) | payer BC ==
[2021-01-25] MEDS ORDERED: Sodium Chloride 0.9% 1,000 ML IV ONE (10:07)
[2021-01-25] MEDS ORDERED: Doxycycline 100 MG Cap PO ONE (10:13)
[2021-01-25] MEDS ORDERED: Amoxicillin/Clavulanate K 875-125 MG Tab PO ONE (10:13)
--- NOTE | 2021-01-25 10:17 | EDM.PDOC ---
ED HPI GENERAL MEDICAL PROBLEM - General Chief Complaint: General Stated Complaint: CAME TO RECEIVE A "DRIP" Time Seen by Provider: 01/25/21 09:42 - History of Present Illness INITIAL COMMENTS - FREE TEXT/NARRATIVE: Patient presents to the emergency department for reevaluation. Patient has been sick for 7 to 8 days with cough fevers and shortness of breath. Patient was seen here yesterday has had AGAINST MEDICAL ADVICE. There was a prescription for Augmentin called in because the patient had a pneumonia but she did not fill it. She was concerned because her sodium level was low and she was told that she needs a drip. Patient states last night she woke up and was sweating profusely and not feeling well. Patient is immunized against Covid and has tested negative thus far. I reviewed chest x-ray results from yesterday and she in fact has a left-sided infiltrate. No exacerbating or alleviating factors body aches Pain Score (Numeric/FACES): 1 - Related Data Allergies Allergy/AdvReac Type Severity Reaction Status Date / Time Sulfa (Sulfonamide Allergy Hives Verified 01/25/21 10:06 Antibiotics) Home Meds: Home Meds Escitalopram Oxalate 10 mg PO DAILY 07/19/17 [History] Losartan Potassium 50 mg PO QAM 07/19/17 [History] MV,Ca,Min/FA/Herbal Comp #223 [Estroven Mood and Memory Cplt] 1 tab PO DAILY 07/19/17 [History] Pantoprazole Sodium 40 mg PO DAILY 07/19/17 [History] Acetaminophen [Tylenol Extra Strength] 2 tab PO ASDIRECTED PRN 04/14/20 [History] Cetirizine HCl [Zyrtec] 10 mg PO DAILY PRN 04/14/20 [History] Past Medical History HEENT History: Reports: Allergic Rhinitis, Other (See Below) Other HEENT History: wears glasssess/contacts, has top and bottom denture Cardiovascular History: Reports: Hypertension Respiratory History: Reports: None Gastrointestinal History: Reports: GERD, Irritable Bowel Syndrome Genitourinary History: Reports: None 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: Musculoskeletal History: Reports: None Neurological History: Reports: None Psychiatric History: Reports: Anxiety, Depression Endocrine/Metabolic History: Reports: None Hematologic History: Reports: None Immunologic History: Reports: None Oncologic (Cancer) History: Reports: None Dermatologic History: Reports: None - Infectious Disease History Infectious Disease History: Reports: Chicken Pox - Past Surgical History Head Surgeries/Procedures: Reports: None HEENT Surgical History: Reports: None Cardiovascular Surgical History: Reports: None Respiratory Surgical History: Reports: None GI Surgical History: Reports: Colonoscopy Female Surgical History: Reports: Section, Tubal Ligation Endocrine Surgical History: Reports: None Neurological Surgical History: Reports: None Musculoskeletal Surgical History: Reports: Carpal Tunnel, Other (See Below) Other Musculoskeletal Surgeries/Procedures:: excision of ganglion cyst-left ankle Oncologic Surgical History: Reports: None Social & Family History - Family History Family Medical History: No Pertinent Family History - Tobacco Use Tobacco Use Status *Q: Current Every Day Tobacco User Years of Tobacco use: 36 Packs/Tins Daily: 0.5 - Caffeine Use Caffeine Use: Reports: Coffee - Recreational Drug Use Recreational Drug Use: No ED ROS GENERAL - Review of Systems Review Of Systems: See Below Constitutional: Reports: Fever, Chills Respiratory: Reports: Shortness of Breath, Cough Cardiovascular: Denies: Chest Pain GI/Abdominal: Denies: Abdominal Pain, Diarrhea, Vomiting : Denies: Dysuria Musculoskeletal: Reports: Muscle Pain Skin: Denies: Rash Neurological: Reports: No Symptoms Psychiatric: Reports: No Symptoms ED EXAM, GENERAL - Physical Exam Exam: See Below Free Text/Narrative:: CONSTITUTIONAL: well appearing in no acute distress. O2 room air saturation > normal > %99 SKIN: Warm, dry, and intact without rash HENT: Normocephalic, atraumatic, PULMONARY: Left-sided rales. Increased work of breathing, no retractions CARDIOVASCULAR: regular rate, No murmur, rubs, or gallops GASTROINTESTINAL: soft, nondistended, nontender NEUROLOGIC: normal speech,. Sensorimotor function grossly intact MUSCULOSKELETAL: no gross deformities, atraumatic PSYCHIATRIC: normal mood and affect Course - Vital Signs Text/Narrative:: Differential diagnosis: Pneumonia, Covid, PE, ACS, CHF, other Patient presents with respiratory symptoms has evidence of pneumonia. Covid negative x2. Consistent with bacterial pneumonia. Patient given Augmentin and doxycycline here in the ED and anticipated to get ceftriaxone as an inpatient. Patient's sodium dropped from 1 28-1 23 and should be hospitalized to follow and treat this. Patient had received a liter of fluids in the emergency department prior to obtaining results. Patient with some tachypnea and labored breathing with objective rales. Patient admitted continue treatment and management Last Recorded V/S: Last Vital Signs Temp 39.3 C H 01/25/21 11:02 Pulse 83 01/25/21 10:58 Resp 18 01/25/21 10:58 BP 150/58 H 01/25/21 10:58 Pulse Ox 99 01/25/21 10:58 - Orders/Labs/Meds Orders: Active Orders 24 hr Category Date Time Status Admission Status [Patient Status] [ADT] Stat ADT 01/25/21 11:43 Ordered Labs: Laboratory Tests 01/25/21 01/25/21 Range/Units 10:00 10:00 WBC 10.13 (4.0-11.0) K/uL RBC 3.90 L (4.30-5.90) M/uL Hgb 13.8 (12.0-16.0) g/dL Hct 38.5 (36.0-46.0) % MCV 98.7 H (80.0-98.0) fL MCH 35.4 H (27.0-32.0) pg MCHC 35.8 (31.0-37.0) g/dL RDW Std Deviation 46.8 (28.0-62.0) fl RDW Coeff of Sonu 13 (11.0-15.0) % Plt Count 227 (150-400) K/uL MPV 10.10 (7.40-12.00) fL Neut % (Auto) 88.2 H (48.0-80.0) % Lymph % (Auto) 5.3 L (16.0-40.0) % La[place] % (Auto) 6.4 (0.0-15.0) % Eos % (Auto) 0.0 (0.0-7.0) % Baso % (Auto) 0.1 (0.0-1.5) % Neut # (Auto) 8.9 H (1.4-5.7) K/uL Lymph # (Auto) 0.5 L (0.6-2.4) K/uL [place] # (Auto) 0.7 (0.0-0.8) K/uL Eos # (Auto) 0.0 (0.0-0.7) K/uL Baso # (Auto) 0.0 (0.0-0.1) K/uL Nucleated RBC % 0.0 /100WBC Nucleated RBCs # 0 K/uL Sodium 123 L (136-145) mmol/L Potassium 3.3 L (3.5-5.1) mmol/L Chloride 88 L (98-107) mmol/L Carbon Dioxide 22.6 (21.0-32.0) mmol/L BUN 9 (7.0-18.0) mg/dL Creatinine 0.9 (0.6-1.0) mg/dL Est Cr Clr Drug Dosing 51.92 mL/min Estimated GFR (MDRD) > 60.0 ml/min Glucose 176 H (74-106) mg/dL Calcium 9.0 (8.5-10.1) mg/dL Total Bilirubin 0.6 (0.2-1.0) mg/dL AST 218 H (15-37) IU/L ALT 121 H (14-63) IU/L Alkaline Phosphatase 131 H (46-116) U/L Total Protein 7.1 (6.4-8.2) g/dL Albumin 3.0 L (3.4-5.0) g/dL Globulin 4.1 H (2.6-4.0) g/dL Albumin/Globulin Ratio 0.7 L (0.9-1.6) Meds: Medications Discontinued Medications Generic Name Dose Route Start Last Admin Trade Name Freq PRN Reason Stop Dose Admin Amoxicillin/Clavulanate Potassium 1 tab 01/25/21 10:13 01/25/21 11:02 Amoxicillin/Clavulanate K 875-125 Mg Tab PO 01/25/21 10:14 1 tab ONETIME ONE Administration Doxycycline Hyclate 100 mg 01/25/21 10:13 01/25/21 11:02 Doxycycline 100 Mg Cap PO 01/25/21 10:14 100 mg ONETIME ONE Administration Sodium Chloride 1,000 mls @ 999 mls/hr 01/25/21 10:07 01/25/21 10:38 Normal Saline IV 01/25/21 11:07 999 mls/hr .BOLUS ONE Administration Ibuprofen 600 mg 01/25/21 10:50 01/25/21 11:02 Ibuprofen 600 Mg Tab PO 01/25/21 10:51 600 mg ONETIME ONE Administration Nicotine 21 mg 01/25/21 11:42 Nicotine 21 Mg/24 Hr Patch TRDERM 01/25/21 11:43 ONETIME ONE Departure - Departure Time of Disposition: 11:46 Disposition: Admitted As Inpatient 68 Condition: Good Clinical Impression: Pneumonia, Hyponatremia - Discharge Information Referrals: Hector Edmonds PA-C [Primary Care Provider] - Forms: ED Department Discharge Sepsis Event Note (ED) - Evaluation Sepsis Screening Result: No Definite Risk - Focused Exam Vital Signs: Vital Signs Temp Temp Pulse Resp BP Pulse Ox 01/25/21 11:02 39.3 C H 01/25/21 10:58 83 18 150/58 H 99 01/25/21 10:28 92 137/43 L 98 01/25/21 10:09 39.3 C H 88 16 98 01/25/21 10:01 39.3 C H 84 16 136/57 L 98 - My Orders Last 24 Hours: My Active Orders 01/25/21 11:43 Admission Status [Patient Status] [ADT] Stat - Assessment/Plan Last 24 Hours: My Active Orders 01/25/21 11:43 Admission Status [Patient Status] [ADT] Stat
[2021-01-25 10:38] LABS: BLOOD UREA NITROGEN,BUN 9 mg/dL (7.0-18.0); CARBON DIOXIDE,CO2 22.6 mmol/L (21.0-32.0); CHLORIDE,CL 88 mmol/L (98-107); GLUCOSE RANDOM 176 mg/dL (74-106); POTASSIUM,K 3.3 mmol/L (3.5-5.1); SODIUM,NA 123 mmol/L (136-145)
[2021-01-25] MEDS ORDERED: Ibuprofen 600 MG Tab PO ONE (10:50)
[2021-01-25] MEDS ORDERED: Nicotine 21 MG/24 Hr Patch TRDERM ONE (11:42)
[2021-01-25] MEDS ORDERED: Ondansetron 4 MG/2 ML SDV IVPUSH PRN (14:11)
--- NOTE | 2021-01-25 14:22 | PCM.HP.2 ---
H&P History of Present Illness - General Date of Service: 01/25/21 Admit Problem/Dx: Admission Diagnosis/Problem Admission Diagnosis/Problem Pneumonia Source of Information: Patient History Limitations: Reports: No Limitations - History of Present Illness Initial Comments - Free Text/Narative: This 55-year-old female with past medical history of alcohol abuse and hypertension presented to the ER after she left last evening AGAINST MEDICAL ADVICE and was diagnosed with pneumonia as well as hyponatremia. She reports that she started feeling ill approximately a week and a half ago with fatigue nausea and otherwise just not feeling well. She denies any overt respiratory symptoms but does have a mild cough that is nonproductive. No chest pain. She reports that the last few evenings she has been having chills and diaphoresis during the night. She reports that she is not been able to eat very much but has been drinking 8 to 10 glasses of water daily. She reports she has been urinating well with no dysuria or urgency frequency. She denies any abdominal pain. Denies any constipation but does report mild diarrhea which is more normal for her due to history of IBS. 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 She reports she felt she need to be evaluated again today and came in for IV fluids which she was told she needed due to her sodium. She reports that she does smoke approximately half pack a day, she does drink which she was quite vague on the approximate amount but reports she drinks 3-4 drinks nightly but has been decreasing recently. She reports her last drink was last evening. She denies any history of withdrawal or seizures from not drinking alcohol. She denies any recreational drug use. In the ER no leukocytosis noted platelet count 227,000. Sodium 123 potassium 3.3 chloride 88. BUN and creatinine 9 and 0.9 respectively. Bilirubin 0.6 AST 218 ALT 121 alk phos 131. Urine creatinine 32 urine sodium was in the low at 6. Chest x-ray obtained last evening reveals left lower lobe consolidation. Covid swab last evening negative for Covid. Patient treated with doxycycline and Augmentin in the ER along with 1 L normal saline. She was also given 600 mg of ibuprofen. She will be admitted for hyponatremia and community-acquired pneumonia. body aches Pain Score (Numeric/FACES): 1 - Related Data Allergies/Adverse Reactions: Allergies Allergy/AdvReac Type Severity Reaction Status Date / Time Sulfa (Sulfonamide Allergy Hives Verified 01/25/21 14:09 Antibiotics) Home Medications: Home Meds Escitalopram Oxalate 10 mg PO DAILY 07/19/17 [History] Losartan Potassium 50 mg PO QAM 07/19/17 [History] MV,Ca,Min/FA/Herbal Comp #223 [Estroven Mood and Memory Cplt] 1 tab PO DAILY 07/19/17 [History] Pantoprazole Sodium 40 mg PO DAILY 07/19/17 [History] Acetaminophen [Tylenol Extra Strength] 2 tab PO ASDIRECTED PRN 04/14/20 [His tory] Cetirizine HCl [Zyrtec] 10 mg PO DAILY PRN 04/14/20 [History] Past Medical History HEENT History: Reports: Allergic Rhinitis, Other (See Below) Other HEENT History: wears glasssess/contacts, has top and bottom denture Cardiovascular History: Reports: Hypertension Respiratory History: Reports: None. Denies: COPD Gastrointestinal History: Reports: GERD, Irritable Bowel Syndrome Genitourinary History: Reports: None ADVANCE SCOUT History: Reports: Musculoskeletal History: Reports: None Neurological History: Reports: None Psychiatric History: Reports: Anxiety, Depression Endocrine/Metabolic History: Reports: None. Denies: Diabetes, Type II, Obesity/BMI 30+ Hematologic History: Reports: None Immunologic History: Reports: None Oncologic (Cancer) History: Reports: None Dermatologic History: Reports: None - Infectious Disease History Infectious Disease History: Reports: Chicken Pox - Past Surgical History Head Surgeries/Procedures: Reports: None HEENT Surgical History: Reports: None Cardiovascular Surgical History: Reports: None Respiratory Surgical History: Reports: None GI Surgical History: Reports: Colonoscopy, Other (See Below) Other GI Surgeries/Procedures: colonoscopy (2019) Female Surgical History: Reports: Section, Tubal Ligation Endocrine Surgical History: Reports: None Neurological Surgical History: Reports: None Musculoskeletal Surgical History: Reports: Carpal Tunnel, Other (See Below) Other Musculoskeletal Surgeries/Procedures:: excision of ganglion cyst-left ankle Oncologic Surgical History: Reports: None Social & Family History - Family History Family Medical History: No Pertinent Family History - Tobacco Use Tobacco Use Status *Q: Current Every Day Tobacco User Years of Tobacco use: 30 Packs/Tins Daily: 0.5 - Caffeine Use Caffeine Use: Reports: Coffee, Soda - Alcohol Use Number of Drinks Per Day: 2 Alcohol Use Frequency: Daily - Recreational Drug Use Recreational Drug Use: No - Living Situation & Occupation Occupation: Employed H&P Review of Systems - Review of Systems: Review Of Systems: See Below General: Reports: Chills, Malaise, Night Sweats, Decreased Appetite HEENT: Reports: No Symptoms. Denies: Headaches, Sinus Congestion, Vertigo Pulmonary: Reports: Shortness of Breath, Cough. Denies: Sputum, Hemoptysis Cardiovascular: Reports: No Symptoms. Denies: Chest Pain, Dyspnea on Exertion, Lightheadedness Gastrointestinal: Reports: No Symptoms. Denies: Abdominal Pain, Black Stool, Bloody Stool Genitourinary: Reports: No Symptoms. Denies: Dysuria, Frequency Musculoskeletal: Reports: No Symptoms Skin: Reports: No Symptoms Psychiatric: Reports: No Symptoms Neurological: Reports: No Symptoms. Denies: Confusion, Numbness, Paresthesia, Seizure, Difficulty Walking, Weakness Hematologic/Lymphatic: Reports: No Symptoms Immunologic: Reports: No Symptoms Exam - Exam Exam: See Below - Vital Signs Vital Signs: Last Vital Signs Temp 101 F H 01/25/21 13:06 Pulse 83 01/25/21 13:06 Resp 18 01/25/21 13:06 BP 109/45 L 01/25/21 13:06 Pulse Ox 97 01/25/21 13:06 Weight: 51.437 kg - Exam General: Alert, Oriented, Cooperative HEENT: Conjunctiva Clear, Mucosa Moist & [place], Posterior Pharynx Clear Lungs: Clear to Auscultation, Normal Respiratory Effort Cardiovascular: Regular Rate, Regular Rhythm, Normal S1, Normal S2 GI/Abdominal Exam: Normal Bowel Sounds, Soft, Non-Tender Extremities: Normal Inspection, Normal Range of Motion, Non-Tender, No Pedal Edema Neuro Extensive - Mental Status: Alert, Oriented x3 Neuro Extensive - Motor, Sensory, Reflexes: CN II-XII Intact, Normal Gait Psychiatric: Alert, Normal Affect, Normal Mood - Patient Data Lab Results Last 24 hrs: Laboratory Results - last 24 hr 01/25/21 01/25/21 Range/Units 10:00 10:00 WBC 10.13 (4.0-11.0) K/uL RBC 3.90 L (4.30-5.90) M/uL Hgb 13.8 (12.0-16.0) g/dL Hct 38.5 (36.0-46.0) % MCV 98.7 H (80.0-98.0) fL MCH 35.4 H (27.0-32.0) pg MCHC 35.8 (31.0-37.0) g/dL RDW Std Deviation 46.8 (28.0-62.0) fl RDW Coeff of Sonu 13 (11.0-15.0) % Plt Count 227 (150-400) K/uL MPV 10.10 (7.40-12.00) fL Neut % (Auto) 88.2 H (48.0-80.0) % Lymph % (Auto) 5.3 L (16.0-40.0) % [place] % (Auto) 6.4 (0.0-15.0) % Eos % (Auto) 0.0 (0.0-7.0) % Baso % (Auto) 0.1 (0.0-1.5) % Neut # (Auto) 8.9 H (1.4-5.7) K/uL Lymph # (Auto) 0.5 L (0.6-2.4) K/uL [place] # (Auto) 0.7 (0.0-0.8) K/uL Eos # (Auto) 0.0 (0.0-0.7) K/uL Baso # (Auto) 0.0 (0.0-0.1) K/uL Nucleated RBC % 0.0 /100WBC Nucleated RBCs # 0 K/uL Sodium 123 L (136-145) mmol/L Potassium 3.3 L (3.5-5.1) mmol/L Chloride 88 L (98-107) mmol/L Carbon Dioxide 22.6 (21.0-32.0) mmol/L BUN 9 (7.0-18.0) mg/dL Creatinine 0.9 (0.6-1.0) mg/dL Est Cr Clr Drug Dosing 51.92 mL/min Estimated GFR (MDRD) > 60.0 ml/min Glucose 176 H (74-106) mg/dL Calcium 9.0 (8.5-10.1) mg/dL Total Bilirubin 0.6 (0.2-1.0) mg/dL AST 218 H (15-37) IU/L ALT 121 H (14-63) IU/L Alkaline Phosphatase 131 H (46-116) U/L Total Protein 7.1 (6.4-8.2) g/dL Albumin 3.0 L (3.4-5.0) g/dL Globulin 4.1 H (2.6-4.0) g/dL Albumin/Globulin Ratio 0.7 L (0.9-1.6) Result Diagrams: 01/25/21 10:00 01/25/21 14:41 Sepsis Event Note - Evaluation Sepsis Screening Result: Possible Sepsis Risk - Focused Exam Vital Signs: Vital Signs Temp Temp Pulse Resp BP Pulse Ox 01/25/21 13:06 101 F H 83 18 109/45 L 97 01/25/21 12:02 101.4 F H 01/25/21 11:02 102.7 F H 01/25/21 10:58 83 18 150/58 H 99 01/25/21 10:28 92 137/43 L 98 01/25/21 10:09 102.7 F H 88 16 98 01/25/21 10:01 102.7 F H 84 16 136/57 L 98 - Problem List (1) Community acquired pneumonia SNOMED Code(s): 540547855 ICD Code: J18.9 - PNEUMONIA, UNSPECIFIED ORGANISM Status: Acute Current Visit: No Qualifiers: Laterality: left Lung location: unspecified part of lung Qualified Code(s): J18.9 - Pneumonia, unspecified organism (2) Hyponatremia SNOMED Code(s): 82163666 ICD Code: E87.1 - HYPO-OSMOLALITY AND HYPONATREMIA Status: Acute Current Visit: Yes (3) Hypertension SNOMED Code(s): 67376913 ICD Code: I10 - ESSENTIAL (PRIMARY) HYPERTENSION Status: Chronic Current Visit: Yes (4) Tobacco abuse SNOMED Code(s): 111333097 ICD Code: Z72.0 - TOBACCO USE Status: Chronic Current Visit: Yes (5) Alcohol use SNOMED Code(s): 589293 ICD Code: Z72.89 - OTHER PROBLEMS RELATED TO LIFESTYLE Status: Chronic Current Visit: Yes (6) Transaminitis SNOMED Code(s): 082374473, 822925602 ICD Code: R74.01 - ELEVATION OF LEVELS OF LIVER TRANSAMINASE LEVELS Status: Acute Current Visit: No Problem List Initiated/Reviewed/Updated: Yes Orders Last 24hrs: Active Orders 24 hr Category Date Time Status Admission Status [Patient Status] [ADT] Stat ADT 01/25/21 11:43 Active Intake and Output Strict [RC] ASDIRECTED Care 01/25/21 14:11 Ordered Oxygen Therapy [RC] PRN Care 01/25/21 14:11 Ordered Up With Assistance [RC] ASDIRECTED Care 01/25/21 14:11 Ordered VTE/DVT Education [RC] PER UNIT ROUTINE Care 01/25/21 14:11 Ordered Vital Signs [RC] Q4H Care 01/25/21 14:11 Ordered Regular Diet [DIET] Diet 01/25/21 Lunch Ordered CBC WITH AUTO DIFF [HEME] AM Lab 01/26/21 05:11 Ordered CREATININE,URINE RAND [URCHEM] Routine Lab 01/25/21 14:08 Ordered LEGIONELLA ANTIGEN [MREF] Urgent Lab 01/25/21 14:16 Ordered MAGNESIUM [CHEM] AM Lab 01/26/21 05:11 Ordered OSMOLALITY - SERUM [REF] Urgent Lab 01/25/21 14:08 Ordered OSMOLALITY - URINE Urgent Lab 01/25/21 14:08 Ordered SODIUM,NA [CHEM] Routine Lab 01/25/21 14:11 Ordered SODIUM,URINE RANDOM [URCHEM] Routine Lab 01/25/21 14:08 Ordered STREP PNEUMONIAE ANTIGEN [MREF] Urgent Lab 01/25/21 14:16 Ordered Acetaminophen [TylenoL] Med 01/25/21 14:11 Ordered 650 mg PO Q4H PRN Azithromycin [Zithromax] Med 01/26/21 09:00 Ordered 500 mg PO Q24H Ondansetron [Zofran] Med 01/25/21 14:11 Ordered 4 mg IVPUSH Q4H PRN cefTRIAXone [Rocephin in Dextrose,Iso-Osm 1 GM/50 ML] 1 Med 01/26/21 09:00 Ordered gm Premix Bag 1 bag IV Q24H Resuscitation Status Routine Resus Stat 01/25/21 14:11 Ordered Medication Orders Acetaminophen (Acetaminophen 325 Mg Tab) 650 mg PO Q4H PRN PRN Reason: Pain (Mild 1-3)/fever Ondansetron HCl (Ondansetron 4 Mg/2 Ml Sdv) 4 mg IVPUSH Q4H PRN PRN Reason: Nausea Assessment/Plan Comment:: This 55-year-old female admitted with community-acquired pneumonia and hyponatremia 1. Community-acquired pneumonia -No leukocytosis noted no sepsis noted. -Administer Rocephin and continue this along with a azithromycin -DuoNebs as needed -Encourage I-S 2. Hyponatremia -Urine osmolality and serum osmolality pending -Urine sodium low -Patient does have history of alcohol abuse denies CHF history -Was given 1 L IV fluids, normal saline in the ER -We will fluid restrict to 1 L daily for now -Repeat sodium 128 -We will repeat sodium in 6 hours -Monitor neurologic status 3. Hypertension -Blood pressure soft we will hold losartan for now 4. Alcohol use -Supplement thiamine and folic acid -CIWA protocol every 4 hours -Ativan per CIWA as needed -Transaminitis likely secondary to alcohol abuse we will monitor in a.m. consider right upper quadrant ultrasound will obtain hepatitis panel VTE prophylaxis: Lovenox GI prophylaxis: Protonix CODE STATUS: Full code Dispo: 2 to 3 days pending improvement in sodium
[2021-01-25] MEDS ORDERED: Potassium Chloride 20 MEQ Tab.ER PO ONE (15:08)
[2021-01-25] MEDS ORDERED: Cetirizine 10 MG Tab PO PRN (15:09)
[2021-01-25] MEDS ORDERED: LORazepam 2 MG/ML SDV IVPUSH PRN (15:09)
[2021-01-25] MEDS: cefTRIAXone 1 GM in Premix Bag 1 BAG IV SCH (16:19)
[2021-01-25] MEDS: Acetaminophen 325 MG Tab PO PRN (17:22)
[2021-01-25] MEDS: Folic Acid 1 MG Tab PO SCH (21:35)
[2021-01-25] MEDS: Thiamine 100 MG Tab PO SCH (21:35)
[2021-01-25] MEDS ORDERED: Calcium Carbonate 500 MG Tab.Chew PO PRN (22:33)
[2021-01-26] MEDS: Acetaminophen 325 MG Tab PO PRN ×2 (03:33→16:22)
[2021-01-26 07:27] LABS: BLOOD UREA NITROGEN,BUN 7 mg/dL (7.0-18.0); CARBON DIOXIDE,CO2 24.6 mmol/L (21.0-32.0); CHLORIDE,CL 95 mmol/L (98-107); GLUCOSE RANDOM 100 mg/dL (74-106); POTASSIUM,K 4.2 mmol/L (3.5-5.1); SODIUM,NA 128 mmol/L (136-145)
[2021-01-26] MEDS: Pantoprazole 40 MG Tab.CR PO SCH (07:43)
[2021-01-26] MEDS ORDERED: Magnesium Sulfate/Water 2 GM in Premix Bag 1 BAG IV ONE (08:05)
[2021-01-26] MEDS: Azithromycin 250 MG Tab PO SCH (08:19)
[2021-01-26] MEDS: Escitalopram 10 MG Tab PO SCH (08:20)
[2021-01-26] MEDS ORDERED: cefTRIAXone 1 GM in Premix Bag 1 BAG IV SCH (09:00)
--- NOTE | 2021-01-26 09:29 | PCM.PN ---
- General Info Date of Service: 01/26/21 Admission Dx/Problem (Free Text): Admission Diagnosis/Problem Admission Diagnosis/Problem Pneumonia Subjective Update: Feeling a little better today. No chest pain. Had coughing and shortness breath overnight. No other concerns. Eating somewhat but appetite still poor. - Review of Systems General: Reports: Fatigue, Malaise HEENT: Reports: No Symptoms. Denies: Headaches, Sore Throat, Visual Changes Pulmonary: Reports: Shortness of Breath, Cough. Denies: Sputum, Wheezing Cardiovascular: Reports: Dyspnea on Exertion. Denies: Chest Pain Gastrointestinal: Reports: No Symptoms. Denies: Abdominal Pain, Nausea, Vomiting Genitourinary: Reports: No Symptoms. Denies: Dysuria, Frequency, Burning Musculoskeletal: Reports: No Symptoms Skin: Reports: No Symptoms Neurological: Reports: No Symptoms Psychiatric: Reports: No Symptoms - Patient Data Vitals - Most Recent: Last Vital Signs Temp 95.0 F L 01/26/21 07:55 Pulse 60 01/26/21 07:55 Resp 20 01/26/21 03:42 BP 115/67 01/26/21 07:55 Pulse Ox 95 01/26/21 03:42 Weight - Most Recent: 51.437 kg I&O - Last 24 Hours: Intake & Output 01/25/21 01/26/21 01/26/21 22:59 06:59 14:59 Intake Total 50 800 Output Total 300 Balance 50 500 Lab Results Last 24 Hours: Laboratory Results - last 24 hr 01/25/21 01/25/21 01/25/21 Range/Units 10:00 10:00 14:41 WBC 10.13 (4.0-11.0) K/uL RBC 3.90 L (4.30-5.90) M/uL Hgb 13.8 (12.0-16.0) g/dL Hct 38.5 (36.0-46.0) % MCV 98.7 H (80.0-98.0) fL MCH 35.4 H (27.0-32.0) pg MCHC 35.8 (31.0-37.0) g/dL RDW Std Deviation 46.8 (28.0-62.0) fl RDW Coeff of Sonu 13 (11.0-15.0) % Plt Count 227 (150-400) K/uL MPV 10.10 (7.40-12.00) fL Neut % (Auto) 88.2 H (48.0-80.0) % Lymph % (Auto) 5.3 L (16.0-40.0) % [place] % (Auto) 6.4 (0.0-15.0) % Eos % (Auto) 0.0 (0.0-7.0) % Baso % (Auto) 0.1 (0.0-1.5) % Neut # (Auto) 8.9 H (1.4-5.7) K/uL Lymph # (Auto) 0.5 L (0.6-2.4) K/uL [place] # (Auto) 0.7 (0.0-0.8) K/uL Eos # (Auto) 0.0 (0.0-0.7) K/uL Baso # (Auto) 0.0 (0.0-0.1) K/uL Nucleated RBC % 0.0 /100WBC Nucleated RBCs # 0 K/uL Sodium 123 L 128 L (136-145) mmol/L Potassium 3.3 L (3.5-5.1) mmol/L Chloride 88 L (98-107) mmol/L Carbon Dioxide 22.6 (21.0-32.0) mmol/L BUN 9 (7.0-18.0) mg/dL Creatinine 0.9 (0.6-1.0) mg/dL Est Cr Clr Drug Dosing 51.92 mL/min Estimated GFR (MDRD) > 60.0 ml/min Glucose 176 H (74-106) mg/dL Calcium 9.0 (8.5-10.1) mg/dL Magnesium (1.8-2.4) mg/dL Total Bilirubin 0.6 (0.2-1.0) mg/dL AST 218 H (15-37) IU/L ALT 121 H (14-63) IU/L Alkaline Phosphatase 131 H (46-116) U/L Total Protein 7.1 (6.4-8.2) g/dL Albumin 3.0 L (3.4-5.0) g/dL Globulin 4.1 H (2.6-4.0) g/dL Albumin/Globulin Ratio 0.7 L (0.9-1.6) Ur Random Creatinine mg/dL Ur Random Sodium (40.0-220.0) mmol/L 01/25/21 01/25/21 01/26/21 Range/Units 15:45 20:47 05:37 WBC 7.46 (4.0-11.0) K/uL RBC 3.54 L (4.30-5.90) M/uL Hgb 12.4 (12.0-16.0) g/dL Hct 35.0 L (36.0-46.0) % MCV 98.9 H (80.0-98.0) fL MCH 35.0 H (27.0-32.0) pg MCHC 35.4 (31.0-37.0) g/dL RDW Std Deviation 47.5 (28.0-62.0) fl RDW Coeff of Sonu 13 (11.0-15.0) % Plt Count 218 (150-400) K/uL MPV 10.20 (7.40-12.00) fL Neut % (Auto) 81.3 H (48.0-80.0) % Lymph % (Auto) 10.3 L (16.0-40.0) % [place] % (Auto) 8.2 (0.0-15.0) % Eos % (Auto) 0.1 (0.0-7.0) % Baso % (Auto) 0.1 (0.0-1.5) % Neut # (Auto) 6.1 H (1.4-5.7) K/uL Lymph # (Auto) 0.8 (0.6-2.4) K/uL [place] # (Auto) 0.6 (0.0-0.8) K/uL Eos # (Auto) 0.0 (0.0-0.7) K/uL Baso # (Auto) 0.0 (0.0-0.1) K/uL Nucleated RBC % 0.0 /100WBC Nucleated RBCs # 0 K/uL Sodium 131 L (136-145) mmol/L Potassium (3.5-5.1) mmol/L Chloride (98-107) mmol/L Carbon Dioxide (21.0-32.0) mmol/L BUN (7.0-18.0) mg/dL Creatinine (0.6-1.0) mg/dL Est Cr Clr Drug Dosing mL/min Estimated GFR (MDRD) ml/min Glucose (74-106) mg/dL Calcium (8.5-10.1) mg/dL Magnesium (1.8-2.4) mg/dL Total Bilirubin (0.2-1.0) mg/dL AST (15-37) IU/L ALT (14-63) IU/L Alkaline Phosphatase (46-116) U/L Total Protein (6.4-8.2) g/dL Albumin (3.4-5.0) g/dL Globulin (2.6-4.0) g/dL Albumin/Globulin Ratio (0.9-1.6) Ur Random Creatinine 32.2 mg/dL Ur Random Sodium 6.0 L (40.0-220.0) mmol/L 01/26/21 Range/Units 05:37 WBC (4.0-11.0) K/uL RBC (4.30-5.90) M/uL Hgb (12.0-16.0) g/dL Hct (36.0-46.0) % MCV (80.0-98.0) fL MCH (27.0-32.0) pg MCHC (31.0-37.0) g/dL RDW Std Deviation (28.0-62.0) fl RDW Coeff of Sonu (11.0-15.0) % Plt Count (150-400) K/uL MPV (7.40-12.00) fL Neut % (Auto) (48.0-80.0) % Lymph % (Auto) (16.0-40.0) % [place] % (Auto) (0.0-15.0) % Eos % (Auto) (0.0-7.0) % Baso % (Auto) (0.0-1.5) % Neut # (Auto) (1.4-5.7) K/uL Lymph # (Auto) (0.6-2.4) K/uL [place] # (Auto) (0.0-0.8) K/uL Eos # (Auto) (0.0-0.7) K/uL Baso # (Auto) (0.0-0.1) K/uL Nucleated RBC % /100WBC Nucleated RBCs # K/uL Sodium 128 L (136-145) mmol/L Potassium 4.2 (3.5-5.1) mmol/L Chloride 95 L (98-107) mmol/L Carbon Dioxide 24.6 (21.0-32.0) mmol/L BUN 7 (7.0-18.0) mg/dL Creatinine 0.8 (0.6-1.0) mg/dL Est Cr Clr Drug Dosing 58.41 mL/min Estimated GFR (MDRD) > 60.0 ml/min Glucose 100 (74-106) mg/dL Calcium 8.6 (8.5-10.1) mg/dL Magnesium 1.4 L (1.8-2.4) mg/dL Total Bilirubin 0.4 (0.2-1.0) mg/dL AST 104 H (15-37) IU/L ALT 81 H (14-63) IU/L Alkaline Phosphatase 116 (46-116) U/L Total Protein 6.1 L (6.4-8.2) g/dL Albumin 2.5 L (3.4-5.0) g/dL Globulin 3.6 (2.6-4.0) g/dL Albumin/Globulin Ratio 0.7 L (0.9-1.6) Ur Random Creatinine mg/dL Ur Random Sodium (40.0-220.0) mmol/L Med Orders - Current: Current Medications Acetaminophen (Acetaminophen 325 Mg Tab) 650 mg PO Q4H PRN PRN Reason: Pain (Mild 1-3)/fever Last Admin: 01/26/21 03:33 Dose: 650 mg Documented by: Azithromycin (Azithromycin 250 Mg Tab) 500 mg PO Q24H [facility] Last Admin: 01/26/21 08:19 Dose: 500 mg Documented by: Calcium Carbonate/Glycine (Calcium Carbonate 500 Mg Tab.Chew) 500 mg PO TID PRN PRN Reason: Indigestion Last Admin: 01/25/21 23:02 Dose: 500 mg Documented by: Cetirizine HCl (Cetirizine 10 Mg Tab) 10 mg PO DAILY PRN PRN Reason: Allergies Last Admin: 01/26/21 03:34 Dose: 10 mg Documented by: Escitalopram Oxalate (Escitalopram 10 Mg Tab) 10 mg PO DAILY [facility] Last Admin: 01/26/21 08:20 Dose: 10 mg Documented by: Folic Acid (Folic Acid 1 Mg Tab) 1 mg PO BEDTIME [facility] Last Admin: 01/25/21 21:35 Dose: 1 mg Documented by: Ceftriaxone Sodium/Dextrose 1 (gm/ Premix) 50 mls @ 100 mls/hr IV Q24H [facility] Last Admin: 01/25/21 16:19 Dose: 100 mls/hr Documented by: Magnesium Sulfate 2 gm/ Premix 50 mls @ 12.5 mls/hr IV ONETIME ONE Stop: 01/26/21 12:04 Last Admin: 01/26/21 08:20 Dose: 12.5 mls/hr Documented by: Lorazepam (Lorazepam 2 Mg/Ml Sdv) 0 mg IVPUSH Q4H PRN; Protocol PRN Reason: CIWAA Ondansetron HCl (Ondansetron 4 Mg/2 Ml Sdv) 4 mg IVPUSH Q4H PRN PRN Reason: Nausea Pantoprazole Sodium (Pantoprazole 40 Mg Tab.Cr) 40 mg PO ACBREAKFAST [facility] Last Admin: 01/26/21 07:43 Dose: 40 mg Documented by: Thiamine HCl (Thiamine 100 Mg Tab) 100 mg PO BEDTIME [facility] Last Admin: 01/25/21 21:35 Dose: 100 mg Documented by: Discontinued Medications Amoxicillin/Clavulanate Potassium (Amoxicillin/Clavulanate K 875-125 Mg Tab) 1 tab PO ONETIME ONE Stop: 01/25/21 10:14 Last Admin: 01/25/21 11:02 Dose: 1 tab Documented by: Doxycycline Hyclate (Doxycycline 100 Mg Cap) 100 mg PO ONETIME ONE Stop: 01/25/21 10:14 Last Admin: 01/25/21 11:02 Dose: 100 mg Documented by: Sodium Chloride (Normal Saline) 1,000 mls @ 999 mls/hr IV .BOLUS ONE Stop: 01/25/21 11:07 Last Admin: 01/25/21 10:38 Dose: 999 mls/hr Documented by: Ceftriaxone Sodium/Dextrose 1 (gm/ Premix) 50 mls @ 100 mls/hr IV Q24H [facility] Ibuprofen (Ibuprofen 600 Mg Tab) 600 mg PO ONETIME ONE Stop: 01/25/21 10:51 Last Admin: 01/25/21 11:02 Dose: 600 mg Documented by: Nicotine (Nicotine 21 Mg/24 Hr Patch) 21 mg TRDERM ONETIME ONE Stop: 01/25/21 11:43 Last Admin: 01/25/21 12:08 Dose: 21 mg Documented by: Potassium Chloride (Potassium Chloride 20 Meq Tab.Er) 40 meq PO ONETIME ONE Stop: 01/25/21 15:09 Last Admin: 01/25/21 16:20 Dose: 40 meq Documented by: - Exam Quality Assessment: DVT Prophylaxis. No: Supplemental Oxygen General: Alert, Oriented, Cooperative, No Acute Distress Lungs: Normal Respiratory Effort, Decreased Breath Sounds, Crackles (LLL, fine crackles) Cardiovascular: Regular Rate, Regular Rhythm GI/Abdominal Exam: Normal Bowel Sounds, Soft, Non-Tender Extremities: Normal Inspection, Normal Range of Motion, Non-Tender, No Pedal Edema Skin: Warm, Dry Wound/Incisions: Healing Well Neurological: No New Focal Deficit Psy/Mental Status: Alert, Normal Affect, Normal Mood - Patient Data Lab Results Last 24 hrs: Laboratory Results - last 24 hr 01/25/21 01/25/21 01/25/21 Range/Units 10:00 10:00 14:41 WBC 10.13 (4.0-11.0) K/uL RBC 3.90 L (4.30-5.90) M/uL Hgb 13.8 (12.0-16.0) g/dL Hct 38.5 (36.0-46.0) % MCV 98.7 H (80.0-98.0) fL MCH 35.4 H (27.0-32.0) pg MCHC 35.8 (31.0-37.0) g/dL RDW Std Deviation 46.8 (28.0-62.0) fl RDW Coeff of Sonu 13 (11.0-15.0) % Plt Count 227 (150-400) K/uL MPV 10.10 (7.40-12.00) fL Neut % (Auto) 88.2 H (48.0-80.0) % Lymph % (Auto) 5.3 L (16.0-40.0) % [place] % (Auto) 6.4 (0.0-15.0) % Eos % (Auto) 0.0 (0.0-7.0) % Baso % (Auto) 0.1 (0.0-1.5) % Neut # (Auto) 8.9 H (1.4-5.7) K/uL Lymph # (Auto) 0.5 L (0.6-2.4) K/uL [place] # (Auto) 0.7 (0.0-0.8) K/uL Eos # (Auto) 0.0 (0.0-0.7) K/uL Baso # (Auto) 0.0 (0.0-0.1) K/uL Nucleated RBC % 0.0 /100WBC Nucleated RBCs # 0 K/uL Sodium 123 L 128 L (136-145) mmol/L Potassium 3.3 L (3.5-5.1) mmol/L Chloride 88 L (98-107) mmol/L Carbon Dioxide 22.6 (21.0-32.0) mmol/L BUN 9 (7.0-18.0) mg/dL Creatinine 0.9 (0.6-1.0) mg/dL Est Cr Clr Drug Dosing 51.92 mL/min Estimated GFR (MDRD) > 60.0 ml/min Glucose 176 H (74-106) mg/dL Calcium 9.0 (8.5-10.1) mg/dL Magnesium (1.8-2.4) mg/dL Total Bilirubin 0.6 (0.2-1.0) mg/dL AST 218 H (15-37) IU/L ALT 121 H (14-63) IU/L Alkaline Phosphatase 131 H (46-116) U/L Total Protein 7.1 (6.4-8.2) g/dL Albumin 3.0 L (3.4-5.0) g/dL Globulin 4.1 H (2.6-4.0) g/dL Albumin/Globulin Ratio 0.7 L (0.9-1.6) Ur Random Creatinine mg/dL Ur Random Sodium (40.0-220.0) mmol/L 01/25/21 01/25/21 01/26/21 Range/Units 15:45 20:47 05:37 WBC 7.46 (4.0-11.0) K/uL RBC 3.54 L (4.30-5.90) M/uL Hgb 12.4 (12.0-16.0) g/dL Hct 35.0 L (36.0-46.0) % MCV 98.9 H (80.0-98.0) fL MCH 35.0 H (27.0-32.0) pg MCHC 35.4 (31.0-37.0) g/dL RDW Std Deviation 47.5 (28.0-62.0) fl RDW Coeff of Sonu 13 (11.0-15.0) % Plt Count 218 (150-400) K/uL MPV 10.20 (7.40-12.00) fL Neut % (Auto) 81.3 H (48.0-80.0) % Lymph % (Auto) 10.3 L (16.0-40.0) % [place] % (Auto) 8.2 (0.0-15.0) % Eos % (Auto) 0.1 (0.0-7.0) % Baso % (Auto) 0.1 (0.0-1.5) % Neut # (Auto) 6.1 H (1.4-5.7) K/uL Lymph # (Auto) 0.8 (0.6-2.4) K/uL [place] # (Auto) 0.6 (0.0-0.8) K/uL Eos # (Auto) 0.0 (0.0-0.7) K/uL Baso # (Auto) 0.0 (0.0-0.1) K/uL Nucleated RBC % 0.0 /100WBC Nucleated RBCs # 0 K/uL Sodium 131 L (136-145) mmol/L Potassium (3.5-5.1) mmol/L Chloride (98-107) mmol/L Carbon Dioxide (21.0-32.0) mmol/L BUN (7.0-18.0) mg/dL Creatinine (0.6-1.0) mg/dL Est Cr Clr Drug Dosing mL/min Estimated GFR (MDRD) ml/min Glucose (74-106) mg/dL Calcium (8.5-10.1) mg/dL Magnesium (1.8-2.4) mg/dL Total Bilirubin (0.2-1.0) mg/dL AST (15-37) IU/L ALT (14-63) IU/L Alkaline Phosphatase (46-116) U/L Total Protein (6.4-8.2) g/dL Albumin (3.4-5.0) g/dL Globulin (2.6-4.0) g/dL Albumin/Globulin Ratio (0.9-1.6) Ur Random Creatinine 32.2 mg/dL Ur Random Sodium 6.0 L (40.0-220.0) mmol/L 01/26/21 Range/Units 05:37 WBC (4.0-11.0) K/uL RBC (4.30-5.90) M/uL Hgb (12.0-16.0) g/dL Hct (36.0-46.0) % MCV (80.0-98.0) fL MCH (27.0-32.0) pg MCHC (31.0-37.0) g/dL RDW Std Deviation (28.0-62.0) fl RDW Coeff of Sonu (11.0-15.0) % Plt Count (150-400) K/uL MPV (7.40-12.00) fL Neut % (Auto) (48.0-80.0) % Lymph % (Auto) (16.0-40.0) % [place] % (Auto) (0.0-15.0) % Eos % (Auto) (0.0-7.0) % Baso % (Auto) (0.0-1.5) % Neut # (Auto) (1.4-5.7) K/uL Lymph # (Auto) (0.6-2.4) K/uL [place] # (Auto) (0.0-0.8) K/uL Eos # (Auto) (0.0-0.7) K/uL Baso # (Auto) (0.0-0.1) K/uL Nucleated RBC % /100WBC Nucleated RBCs # K/uL Sodium 128 L (136-145) mmol/L Potassium 4.2 (3.5-5.1) mmol/L Chloride 95 L (98-107) mmol/L Carbon Dioxide 24.6 (21.0-32.0) mmol/L BUN 7 (7.0-18.0) mg/dL Creatinine 0.8 (0.6-1.0) mg/dL Est Cr Clr Drug Dosing 58.41 mL/min Estimated GFR (MDRD) > 60.0 ml/min Glucose 100 (74-106) mg/dL Calcium 8.6 (8.5-10.1) mg/dL Magnesium 1.4 L (1.8-2.4) mg/dL Total Bilirubin 0.4 (0.2-1.0) mg/dL AST 104 H (15-37) IU/L ALT 81 H (14-63) IU/L Alkaline Phosphatase 116 (46-116) U/L Total Protein 6.1 L (6.4-8.2) g/dL Albumin 2.5 L (3.4-5.0) g/dL Globulin 3.6 (2.6-4.0) g/dL Albumin/Globulin Ratio 0.7 L (0.9-1.6) Ur Random Creatinine mg/dL Ur Random Sodium (40.0-220.0) mmol/L Result Diagrams: 01/26/21 05:37 01/26/21 05:37 Sepsis Event Note - Evaluation Sepsis Screening Result: No Definite Risk - Focused Exam Vital Signs: Vital Signs Temp Temp Pulse Resp BP Pulse Ox 01/26/21 07:55 95.0 F L 60 115/67 01/26/21 05:30 95.7 F L 01/26/21 03:42 100.2 F 88 20 141/63 H 95 01/26/21 03:33 100.2 F 01/25/21 23:30 98.7 F 85 20 140/61 95 01/25/21 21:30 98.2 F 86 18 132/65 97 - Problem List & Annotations (1) Community acquired pneumonia SNOMED Code(s): 974661076 Code(s): J18.9 - PNEUMONIA, UNSPECIFIED ORGANISM Status: Acute Current Visit: No Qualifiers: Laterality: left Lung location: unspecified part of lung Qualified Code(s): J18.9 - Pneumonia, unspecified organism (2) Hyponatremia SNOMED Code(s): 28098013 Code(s): E87.1 - HYPO-OSMOLALITY AND HYPONATREMIA Status: Acute Current Visit: Yes (3) Hypertension SNOMED Code(s): 10826284 Code(s): I10 - ESSENTIAL (PRIMARY) HYPERTENSION Status: Chronic Current Visit: Yes (4) Tobacco abuse SNOMED Code(s): 132901169 Code(s): Z72.0 - TOBACCO USE Status: Chronic Current Visit: Yes (5) Alcohol use SNOMED Code(s): 175066 Code(s): Z72.89 - OTHER PROBLEMS RELATED TO LIFESTYLE Status: Chronic Current Visit: Yes (6) Transaminitis SNOMED Code(s): 834573491, 751104455 Code(s): R74.01 - ELEVATION OF LEVELS OF LIVER TRANSAMINASE LEVELS Status: Acute Current Visit: No - Problem List Review Problem List Initiated/Reviewed/Updated: Yes - My Orders Last 24 Hours: My Active Orders 01/25/21 10:00 OSMOLALITY - SERUM [REF] Urgent 01/25/21 Lunch Regular Diet [DIET] 01/25/21 14:11 Intake and Output Strict [RC] ASDIRECTED Oxygen Therapy [RC] PRN Up With Assistance [RC] ASDIRECTED VTE/DVT Education [RC] PER UNIT ROUTINE Vital Signs [RC] Q4H Acetaminophen [TylenoL] 650 mg PO Q4H PRN Ondansetron [Zofran] 4 mg IVPUSH Q4H PRN Resuscitation Status Routine 01/25/21 15:04 cefTRIAXone [Rocephin in Dextrose,Iso-Osm 1 GM/50 ML] 1 gm Premix Bag 1 bag IV Q24H 01/25/21 15:09 Cetirizine [ZyrTEC] 10 mg PO DAILY PRN LORazepam [Ativan] See Protocol IVPUSH Q4H PRN 01/25/21 15:45 LEGIONELLA ANTIGEN [MREF] Urgent OSMOLALITY - URINE Urgent STREP PNEUMONIAE ANTIGEN [MREF] Urgent 01/25/21 16:05 Communication Order [RC] ROUTINE 01/25/21 16:49 IS (RT) [RT Incentive Spirometry] [RC] Q1HWA 01/25/21 21:00 Folic Acid 1 mg PO BEDTIME Thiamine [Vitamin B-1] 100 mg PO BEDTIME 01/26/21 06:40 HEPATITIS PANEL (4) [REF] AM 01/26/21 07:30 Pantoprazole [ProTONIX] 40 mg PO ACBREAKFAST 01/26/21 08:05 Magnesium Sulfate/Water [Magnesium Sulfate in Water 2 GM/50 ML] 2 gm Premix Bag 1 bag IV ONETIME 01/26/21 09:00 Azithromycin [Zithromax] 500 mg PO Q24H Escitalopram [Lexapro] 10 mg PO DAILY - Plan Plan:: This 55-year-old female admitted with community-acquired pneumonia and hyponatremia 1. Community-acquired pneumonia -Continue Rocephin and Azithromycin -DuoNebs as needed -Encourage I-S 2. Hyponatremia - Improvement 128 this am. - Did improve with NS yesterday, consider hypovolunemic - Will give 1 L NS this morning, recheck Na this evening. -Urine osmolality and serum osmolality pending -Urine sodium low -Patient does have history of alcohol abuse denies CHF history -Monitor neurologic status 3. Hypertension -Blood pressure soft we will hold losartan for now 4. Alcohol use -Supplement thiamine and folic acid -CIWA protocol every 4 hours -Ativan per CIWA as needed -Transaminitis likely secondary to alcohol abuse we will monitor in a.m. consider right upper quadrant ultrasound will obtain hepatitis panel VTE prophylaxis: Lovenox GI prophylaxis: Protonix CODE STATUS: Full code Dispo: 2 to 3 days pending improvement in sodium
[2021-01-26] MEDS ORDERED: Sodium Chloride 0.9% 1,000 ML IV ONE (10:43)
[2021-01-26] MEDS: Nicotine 21 MG/24 Hr Patch TRDERM SCH (13:24)
[2021-01-26] MEDS: cefTRIAXone 1 GM in Premix Bag 1 BAG IV SCH (14:54)
[2021-01-26] MEDS: Thiamine 100 MG Tab PO SCH (22:12)
[2021-01-26] MEDS: Folic Acid 1 MG Tab PO SCH (22:12)
[2021-01-27] MEDS: Acetaminophen 325 MG Tab PO PRN (01:26)
[2021-01-27 06:43] LABS: BLOOD UREA NITROGEN,BUN 5 mg/dL (7.0-18.0); CARBON DIOXIDE,CO2 28.1 mmol/L (21.0-32.0); CHLORIDE,CL 98 mmol/L (98-107); GLUCOSE RANDOM 88 mg/dL (74-106); POTASSIUM,K 3.6 mmol/L (3.5-5.1); SODIUM,NA 134 mmol/L (136-145)
[2021-01-27] MEDS: Pantoprazole 40 MG Tab.CR PO SCH (06:47)
[2021-01-27] MEDS: Escitalopram 10 MG Tab PO SCH (09:05)
[2021-01-27] MEDS: Azithromycin 250 MG Tab PO SCH (09:05)
[2021-01-27] MEDS: Nicotine 21 MG/24 Hr Patch TRDERM SCH (09:06)
--- NOTE | 2021-01-27 10:27 | PCM.DCSUM1 ---
Discharge Summary - Hospital Course Brief History: This 55-year-old female with past medical history of alcohol abuse and hypertension presented to the ER after she left last evening AGAINST MEDICAL ADVICE and was diagnosed with pneumonia as well as hyponatremia. She reports that she started feeling ill approximately a week and a half ago with fatigue nausea and otherwise just not feeling well. She denies any overt respiratory symptoms but does have a mild cough that is nonproductive. No chest pain. She reports that the last few evenings she has been having chills and diaphoresis during the night. She reports that she is not been able to eat very much but has been drinking 8 to 10 glasses of water daily. She reports she has been urinating well with no dysuria or urgency frequency. She denies any abdominal pain. Denies any constipation but does report mild diarrhea which is more normal for her due to history of IBS. 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 She reports she felt she need to be evaluated again today and came in for IV fluids which she was told she needed due to her sodium. She reports that she does smoke approximately half pack a day, she does drink which she was quite vague on the approximate amount but reports she drinks 3-4 drinks nightly but has been decreasing recently. She reports her last drink was last evening. She denies any history of withdrawal or seizures from not drinking alcohol. She denies any recreational drug use. In the ER no leukocytosis noted platelet count 227,000. Sodium 123 potassium 3.3 chloride 88. BUN and creatinine 9 and 0.9 respectively. Bilirubin 0.6 AST 218 ALT 121 alk phos 131. Urine creatinine 32 urine sodium was in the low at 6. Chest x-ray obtained last evening reveals left lower lobe consolidation. Covid swab last evening negative for Covid. Patient treated with doxycycline and Augmentin in the ER along with 1 L normal saline. She was also given 600 mg of ibuprofen. She will be admitted for hyponatremia and community-acquired pneumonia. - Discharge Data Discharge Date: 01/27/21 Discharge Disposition: Home, Self-Care 01 Condition: Good - Referral to Home Health Primary Care Physician: Hector Edmonds PA-C - Discharge Diagnosis/Problem(s) (1) Community acquired pneumonia SNOMED Code(s): 713237756 ICD Code: J18.9 - PNEUMONIA, UNSPECIFIED ORGANISM Status: Acute Current Visit: No Qualifiers: Laterality: left Lung location: unspecified part of lung Qualified Code(s): J18.9 - Pneumonia, unspecified organism (2) Hyponatremia SNOMED Code(s): 78994850 ICD Code: E87.1 - HYPO-OSMOLALITY AND HYPONATREMIA Status: Acute Current Visit: Yes (3) Hypertension SNOMED Code(s): 39532497 ICD Code: I10 - ESSENTIAL (PRIMARY) HYPERTENSION Status: Chronic Current Visit: Yes (4) Tobacco abuse SNOMED Code(s): 267203465 ICD Code: Z72.0 - TOBACCO USE Status: Chronic Current Visit: Yes (5) Alcohol use SNOMED Code(s): 192798 ICD Code: Z72.89 - OTHER PROBLEMS RELATED TO LIFESTYLE Status: Chronic Current Visit: Yes (6) Transaminitis SNOMED Code(s): 675311620, 970399895 ICD Code: R74.01 - ELEVATION OF LEVELS OF LIVER TRANSAMINASE LEVELS Status: Acute Current Visit: No - Patient Summary/Data Hospital Course: Admission diagnoses Community-acquired pneumonia Hyponatremia Transaminitis Discharge diagnoses Community-acquired pneumonia, Legionella Hyponatremia improved Transaminitis improved Other PMH Hypertension Tobacco abuse Alcohol abuse Taty was admitted secondary to left lower lobe pneumonia treated with Rocephin and azithromycin. Patient also noted to have hyponatremia it appears this is likely secondary to hypovolemia as well as pneumonia. Patient was treated with IV fluids and sodium improved. Urine antigen for strep pneumonia as well as Legionella sent on admission. Strep pneumoniae was negative but Legionella antigen returned positive this morning. Patient does report she has a pond at her house with a water fountain but her does most of the maintenance with this. She also reports she has been swimming within nearby during the summer. No other individuals around her have been sick. Patient improved today no leukocytosis and patient is feeling much improved continues to have mild cough but otherwise is very eager for discharge home. She is eating and drinking well has been up ambulating in her room. She will be discharged home today on Levaquin 750 mg for 5 more days, counseled on side effects to monitor for. Transaminitis was noted on admission patient does have daily fair amount of alcohol use. During her stay this did improve hepatitis panel pending on discharge. No abdominal pain. Transaminitis likely secondary to alcohol use. She is to return to the ER clinic if concerns arise such as worsening symptoms of shortness of breath cough or fever. She is also to monitor the amount of water she drinks and include more drinks with solutes while monitoring for amount of sugar she may begin taking as well. She verbalized understanding. She is to follow-up with PCP in 7 to 10 days return to the ER clinic sooner if concerns arise. - Patient Instructions Diet: Regular Diet as Tolerated Activity: As Tolerated, No Strenuous Activities Showering/Bathing: May Shower Notify Provider of: Fever, Increased Pain, Swelling and Redness, Drainage, Nausea and/or Vomiting - Discharge Plan *PRESCRIPTION DRUG MONITORING PROGRAM REVIEWED*: Not Applicable *COPY OF PRESCRIPTION DRUG MONITORING REPORT IN PATIENT LIZY: Not Applicable Prescriptions/Med Rec: levoFLOXacin [Levaquin] 750 mg PO DAILY #5 tab Home Medications: Home Meds Escitalopram Oxalate 10 mg PO DAILY 07/19/17 [History] Losartan Potassium 50 mg PO QAM 07/19/17 [History] MV,Ca,Min/FA/Herbal Comp #223 [Estroven Mood and Memory Cplt] 1 tab PO DAILY 07/19/17 [History] Pantoprazole Sodium 40 mg PO DAILY 07/19/17 [History] Acetaminophen [Tylenol Extra Strength] 2 tab PO ASDIRECTED PRN 04/14/20 [History] Cetirizine HCl [Zyrtec] 10 mg PO DAILY PRN 04/14/20 [History] levoFLOXacin [Levaquin] 750 mg PO DAILY #5 tab 01/27/21 [Rx] Oxygen Therapy Mode: Room Air Patient Handouts: Health Risks of Smoking, Hyponatremia, [id number], Levofloxacin tablets, Steps to Quit Smoking, Community-Acquired Pneumonia, Adult, [id number] Referrals: Vianney Sidhu PA [Family Provider] - 02/04/21 3:45 pm - Discharge Summary/Plan Comment DC Time >30 min.: Yes Total # of Minutes for Discharge Time: 35 counseling on medications and discharge plan along with diagnosis of CAP legionella pneumonia - Patient Data Vitals - Most Recent: Last Vital Signs Temp 98.7 F 01/27/21 08:37 Pulse 63 01/27/21 08:37 Resp 18 01/27/21 08:37 BP 165/77 H 01/27/21 08:37 Pulse Ox 98 08/25/21 08:37 Weight - Most Recent: 51.437 kg I&O - Last 24 hours: Intake & Output 01/26/21 01/27/21 01/27/21 22:59 06:59 14:59 Intake Total 1678 Output Total 500 Balance 1178 Lab Results - Last 24 hrs: Laboratory Results - last 24 hr 01/25/21 01/25/21 01/26/21 Range/Units 10:00 15:45 19:06 WBC (4.0-11.0) K/uL RBC (4.30-5.90) M/uL Hgb (12.0-16.0) g/dL Hct (36.0-46.0) % MCV (80.0-98.0) fL MCH (27.0-32.0) pg MCHC (31.0-37.0) g/dL RDW Std Deviation (28.0-62.0) fl RDW Coeff of Sonu (11.0-15.0) % Plt Count (150-400) K/uL MPV (7.40-12.00) fL Neut % (Auto) (48.0-80.0) % Lymph % (Auto) (16.0-40.0) % Nuckolls % (Auto) (0.0-15.0) % Eos % (Auto) (0.0-7.0) % Baso % (Auto) (0.0-1.5) % Neut # (Auto) (1.4-5.7) K/uL Lymph # (Auto) (0.6-2.4) K/uL Nuckolls # (Auto) (0.0-0.8) K/uL Eos # (Auto) (0.0-0.7) K/uL Baso # (Auto) (0.0-0.1) K/uL Nucleated RBC % /100WBC Nucleated RBCs # K/uL Sodium 127 L (136-145) mmol/L Potassium (3.5-5.1) mmol/L Chloride (98-107) mmol/L Carbon Dioxide (21.0-32.0) mmol/L BUN (7.0-18.0) mg/dL Creatinine (0.6-1.0) mg/dL Est Cr Clr Drug Dosing mL/min Estimated GFR (MDRD) ml/min Glucose (74-106) mg/dL Serum Osmolality 259 L (275-295) mosm/kg Calcium (8.5-10.1) mg/dL Magnesium (1.8-2.4) mg/dL Urine Osmolality 131 L (300-900) mosm/kg 01/27/21 01/27/21 Range/Units 05:45 05:45 WBC 5.33 (4.0-11.0) K/uL RBC 3.57 L (4.30-5.90) M/uL Hgb 12.5 (12.0-16.0) g/dL Hct 35.5 L (36.0-46.0) % MCV 99.4 H (80.0-98.0) fL MCH 35.0 H (27.0-32.0) pg MCHC 35.2 (31.0-37.0) g/dL RDW Std Deviation 48.0 (28.0-62.0) fl RDW Coeff of Sonu 13 (11.0-15.0) % Plt Count 237 (150-400) K/uL MPV 10.10 (7.40-12.00) fL Neut % (Auto) 64.2 (48.0-80.0) % Lymph % (Auto) 19.3 (16.0-40.0) % Nuckolls % (Auto) 15.4 H (0.0-15.0) % Eos % (Auto) 0.9 (0.0-7.0) % Baso % (Auto) 0.2 (0.0-1.5) % Neut # (Auto) 3.4 (1.4-5.7) K/uL Lymph # (Auto) 1.0 (0.6-2.4) K/uL Nuckolls # (Auto) 0.8 (0.0-0.8) K/uL Eos # (Auto) 0.1 (0.0-0.7) K/uL Baso # (Auto) 0.0 (0.0-0.1) K/uL Nucleated RBC % 0.0 /100WBC Nucleated RBCs # 0 K/uL Sodium 134 L (136-145) mmol/L Potassium 3.6 (3.5-5.1) mmol/L Chloride 98 (98-107) mmol/L Carbon Dioxide 28.1 (21.0-32.0) mmol/L BUN 5 L (7.0-18.0) mg/dL Creatinine 0.7 (0.6-1.0) mg/dL Est Cr Clr Drug Dosing 66.76 mL/min Estimated GFR (MDRD) > 60.0 ml/min Glucose 88 (74-106) mg/dL Serum Osmolality (275-295) mosm/kg Calcium 8.3 L (8.5-10.1) mg/dL Magnesium 2.1 (1.8-2.4) mg/dL Urine Osmolality (300-900) mosm/kg DEBORAH Results - Last 24 hrs: Microbiology 01/25/21 15:45 Streptococcus pneumoniae Antigen (M - Final Urine 01/25/21 15:45 Legionella Urinary Antigen - Final Urine Med Orders - Current: Current Medications Acetaminophen (Acetaminophen 325 Mg Tab) 650 mg PO Q4H PRN PRN Reason: Pain (Mild 1-3)/fever Last Admin: 01/27/21 01:26 Dose: 650 mg Documented by: Azithromycin (Azithromycin 250 Mg Tab) 500 mg PO Q24H [facility] Last Admin: 01/27/21 09:05 Dose: 500 mg Documented by: Calcium Carbonate/Glycine (Calcium Carbonate 500 Mg Tab.Chew) 500 mg PO TID PRN PRN Reason: Indigestion Last Admin: 01/25/21 23:02 Dose: 500 mg Documented by: Cetirizine HCl (Cetirizine 10 Mg Tab) 10 mg PO DAILY PRN PRN Reason: Allergies Last Admin: 01/26/21 03:34 Dose: 10 mg Documented by: Escitalopram Oxalate (Escitalopram 10 Mg Tab) 10 mg PO DAILY [facility] Last Admin: 01/27/21 09:05 Dose: 10 mg Documented by: Folic Acid (Folic Acid 1 Mg Tab) 1 mg PO BEDTIME [facility] Last Admin: 01/26/21 22:12 Dose: 1 mg Documented by: Ceftriaxone Sodium/Dextrose 1 (gm/ Premix) 50 mls @ 100 mls/hr IV Q24H [facility] Last Admin: 01/26/21 14:54 Dose: 100 mls/hr Documented by: Lorazepam (Lorazepam 2 Mg/Ml Sdv) 0 mg IVPUSH Q4H PRN; Protocol PRN Reason: CIWAA Nicotine (Nicotine 21 Mg/24 Hr Patch) 21 mg TRDERM DAILY [facility] Last Admin: 01/27/21 09:06 Dose: 21 mg Documented by: Ondansetron HCl (Ondansetron 4 Mg/2 Ml Sdv) 4 mg IVPUSH Q4H PRN PRN Reason: Nausea Pantoprazole Sodium (Pantoprazole 40 Mg Tab.Cr) 40 mg PO ACBREAKFAST [facility] Last Admin: 01/27/21 06:47 Dose: 40 mg Documented by: Thiamine HCl (Thiamine 100 Mg Tab) 100 mg PO BEDTIME [facility] Last Admin: 01/26/21 22:12 Dose: 100 mg Documented by: Discontinued Medications Amoxicillin/Clavulanate Potassium (Amoxicillin/Clavulanate K 875-125 Mg Tab) 1 tab PO ONETIME ONE Stop: 01/25/21 10:14 Last Admin: 01/25/21 11:02 Dose: 1 tab Documented by: Doxycycline Hyclate (Doxycycline 100 Mg Cap) 100 mg PO ONETIME ONE Stop: 01/25/21 10:14 Last Admin: 01/25/21 11:02 Dose: 100 mg Documented by: Sodium Chloride (Normal Saline) 1,000 mls @ 999 mls/hr IV .BOLUS ONE Stop: 01/25/21 11:07 Last Admin: 01/25/21 10:38 Dose: 999 mls/hr Documented by: Ceftriaxone Sodium/Dextrose 1 (gm/ Premix) 50 mls @ 100 mls/hr IV Q24H [facility] Magnesium Sulfate 2 gm/ Premix 50 mls @ 12.5 mls/hr IV ONETIME ONE Stop: 01/26/21 12:04 Last Admin: 01/26/21 08:20 Dose: 12.5 mls/hr Documented by: Sodium Chloride (Normal Saline) 1,000 mls @ 125 mls/hr IV ONETIME ONE Stop: 01/26/21 18:42 Last Admin: 01/26/21 10:53 Dose: 125 mls/hr Documented by: Ibuprofen (Ibuprofen 600 Mg Tab) 600 mg PO ONETIME ONE Stop: 01/25/21 10:51 Last Admin: 01/25/21 11:02 Dose: 600 mg Documented by: Nicotine (Nicotine 21 Mg/24 Hr Patch) 21 mg TRDERM ONETIME ONE Stop: 01/25/21 11:43 Last Admin: 01/25/21 12:08 Dose: 21 mg Documented by: Potassium Chloride (Potassium Chloride 20 Meq Tab.Er) 40 meq PO ONETIME ONE Stop: 01/25/21 15:09 Last Admin: 01/25/21 16:20 Dose: 40 meq Documented by:
== END 2021-01-27 12:12 | disposition home or self-care (01) | DRG 426 ==
LOC: MW.ED 09:35 → MW.MS 11:43
PROVIDERS: ADMIT Internal Medicine; ATTEND Internal Medicine
DX: E87.1 Hypo-osmolality and hyponatremia (principal); A48.1 Legionnaires' disease; I10 Essential (primary) hypertension; R74.01 Elevation of levels of liver transaminase levels; F17.210 Nicotine dependence, cigarettes, uncomplicated; K21.9 Gastro-esophageal reflux disease without esophagitis; F41.9 Anxiety disorder, unspecified; F32.9 Major depressive disorder, single episode, unspecified; F10.10 Alcohol abuse, uncomplicated; Z72.89 Other problems related to lifestyle; Z88.2 Allergy status to sulfonamides; Z79.899 Other long term (current) drug therapy
CPT/HCPCS: 36415; 80048; 80053; 80074; 82570; 83735; 83930; 83935; 84295; 84300; 85025; 87899; 99285; A9270-GY; J0696; J3475; J7030

== ENCOUNTER 2023-02-03 09:14 | Emergency (ER) | payer BC ==
[2023-02-03 09:56] LABS: BASOPHILS PERCENT AUTO 0.4 % (0.0-1.5); EOSINOPHILS ABSOLUTE AUTO 0.1 K/uL (0.0-0.7); EOSINOPHILS PERCENT AUTO 2.4 % (0.0-7.0); HEMATOCRIT 37.5 % (36.0-46.0); HEMOGLOBIN 12.6 g/dL (12.0-16.0); LYMPHOCYTES ABSOLUTE AUTO 1.1 K/uL (0.6-2.4); LYMPHOCYTES PERCENT AUTO 20.5 % (16.0-40.0); MEAN CORPUSCULAR HEMOGLOBIN 35.6 pg (27.0-32.0); MEAN CORPUSCULAR HGB CONC 33.6 g/dL (31.0-37.0); MEAN CORPUSCULAR VOLUME 105.9 fL (80.0-98.0); MONOCYTES ABSOLUTE AUTO 0.9 K/uL (0.0-0.8); MONOCYTES PERCENT AUTO 17.2 % (0.0-15.0); NEUTROPHILS ABSOLUTE AUTO 3.2 K/uL (1.4-5.7); NEUTROPHILS PERCENT AUTO 59.5 % (48.0-80.0); NRBC ABSOLUTE 0 K/uL; PLATELET COUNT,PLT 276 K/uL (150-400); RED BLOOD CELL COUNT 3.54 M/uL (4.30-5.90); WHITE BLOOD CELL COUNT,WBC 5.41 K/uL (4.0-11.0)
[2023-02-03] MEDS ORDERED: Ketorolac 30 MG/ML SDV IVPUSH ONE (10:08)
[2023-02-03] MEDS ORDERED: Lidocaine 4% 1 each Patch TOP PRN (10:08)
[2023-02-03 10:12] LABS: ALBUMIN 3.7 g/dL (3.4-5.0); BILIRUBIN TOTAL 0.5 mg/dL (0.2-1.0); CALCIUM 9.3 mg/dL (8.5-10.1); CARBON DIOXIDE,CO2 28.6 mmol/L (21.0-32.0); CREATININE 0.6 mg/dL (0.6-1.0); EST CRCL DRUG DOSING (CG) 76.1 mL/min; POTASSIUM,K 3.5 mmol/L (3.5-5.1); PROTEIN TOTAL,TP 7.5 g/dL (6.4-8.2)
== END 2023-02-03 11:40 | disposition home or self-care (01) ==
LOC: MW.ED 09:14
DX: R07.81 Pleurodynia (principal); I10 Essential (primary) hypertension; K21.9 Gastro-esophageal reflux disease without esophagitis; F17.210 Nicotine dependence, cigarettes, uncomplicated; Z88.2 Allergy status to sulfonamides
CPT/HCPCS: 36415; 71045; 80053; 84484; 85025; 87635; 93005; 96374; 99285; A9270; J1885; 93010; 99284; U0002

== ENCOUNTER 2023-07-29 15:08 | Emergency (ER) | payer BC | END 2023-07-29 15:42 | disposition home or self-care (01) | LOC: MW.ED 15:08 | DX: H66.92 Otitis media, unspecified, left ear (principal); K21.9 Gastro-esophageal reflux disease without esophagitis; Z88.2 Allergy status to sulfonamides; Z79.899 Other long term (current) drug therapy | CPT/HCPCS: 99282; 99283 ==

== ENCOUNTER 2023-09-07 10:43 | Emergency (ER) | payer BC ==
[2023-09-07] MEDS: Sodium Chloride 0.9% 10 ML Syringe FLUSH PRN (11:13)
[2023-09-07] MEDS: Sodium Chloride 0.9% 2.5 ML Syringe FLUSH PRN (11:13)
[2023-09-07 11:19] LABS: BASOPHILS ABSOLUTE AUTO 0.02 K/uL (0.00-0.20); BASOPHILS PERCENT AUTO 0.3 % (0.0-1.0); EOSINOPHILS ABSOLUTE AUTO 0.07 K/uL (0.00-0.45); EOSINOPHILS PERCENT AUTO 0.9 % (0.0-6.0); HEMATOCRIT 38.2 % (37.0-47.0); HEMOGLOBIN 13.7 g/dL (12.0-16.0); IMMATURE GRAN ABSOLUTE AUTO 0.03 K/uL (0.00-0.05); IMMATURE GRAN PERCENT AUTO 0.4 % (0.0-0.4); LYMPHOCYTES PERCENT AUTO 12.6 % (24.0-44.0); MEAN CORPUSCULAR HGB CONC 35.9 g/dL (32.0-36.0); MEAN CORPUSCULAR VOLUME 100.3 fL (83.0-99.0); MEAN PLATELET VOLUME 9.4 fL (9.4-12.3); MONOCYTES ABSOLUTE AUTO 0.87 K/uL (0.00-0.80); NEUTROPHILS ABSOLUTE AUTO 5.94 K/uL (1.80-7.70); NEUTROPHILS PERCENT AUTO 74.8 % (41.0-71.0); PLATELET COUNT,PLT 274 K/uL (150-400); RED BLOOD CELL COUNT 3.81 M/uL (4.10-5.30); WHITE BLOOD CELL COUNT,WBC 7.93 K/uL (3.9-11.3)
[2023-09-07 11:23] LABS: APPEARANCE,URINE SLT CLOUDY; COLOR,URINE YELLOW; GLUCOSE,URINE NEGATIVE (NEGATIVE); KETONES,URINE >=80 mg/dL (NEGATIVE); LEUKOCYTE ESTERASE,URINE NEGATIVE (NEGATIVE); NITRITE,URINE NEGATIVE (NEGATIVE); OCCULT BLOOD,URINE NEGATIVE (NEGATIVE); PH,URINE 6.5 (5.0-8.0); PROTEIN,URINE TRACE mg/dL (NEGATIVE)
[2023-09-07 11:25] LABS: BILIRUBIN,URINE MODERATE (NEGATIVE)
[2023-09-07 11:33] LABS: INR 1.03 (0.86-1.11); PTT,PARTIAL THROMBOPLSTIN TIME 29.3 SEC (23.9-30.7)
[2023-09-07 11:35] LABS: BACTERIA,URINE FEW (NEGATIVE); EPITHELIAL CELLS,URINE FEW (NONE-FEW); MUCUS,URINE LIGHT (NONE-MOD); RBC,URINE 0-2 (0-2/HPF); WBC,URINE 0-2 (0-5/HPF)
[2023-09-07 11:51] LABS: A/G RATIO 1.1 (0.9-1.6); ALBUMIN 4.2 g/dL (3.4-5.0); BILIRUBIN TOTAL 0.8 mg/dL (0.2-1.0); CALCIUM 10.5 mg/dL (8.5-10.1); CARBON DIOXIDE,CO2 25.7 mmol/L (21.0-32.0); CREATININE 0.7 mg/dL (0.6-1.0); EST CRCL DRUG DOSING (CG) 59.93 mL/min; POTASSIUM,K 3.7 mmol/L (3.5-5.1)
[2023-09-07] MEDS: Pantoprazole 80 MG in Sodium Chloride 0.9% 10 ML IVPUSH STA (11:55)
[2023-09-07] MEDS: Sodium Chloride 0.9% 1,000 ML IV STA (11:55)
[2023-09-07] MEDS: Iopamidol 755 MG/ML 500 ML Multipack Bottle IVPUSH STA (12:47)
[2023-09-07] MEDS: Alum Hydro/Mag Hydro/Simeth XS 15 ML, Lidocaine 2% 5 ML PO STA (14:42)
== END 2023-09-07 15:01 | disposition left against medical advice (07) ==
LOC: MW.ED 10:43
DX: K85.90 Acute pancreatitis without necrosis or infection, unspecified (principal); K29.80 Duodenitis without bleeding; I10 Essential (primary) hypertension; E78.5 Hyperlipidemia, unspecified; K21.9 Gastro-esophageal reflux disease without esophagitis; F17.210 Nicotine dependence, cigarettes, uncomplicated; Z75.8 Other problems related to medical facilities and other health care; Z88.2 Allergy status to sulfonamides; Z79.899 Other long term (current) drug therapy; Z86.19 Personal history of other infectious and parasitic diseases; Z86.16 Personal history of COVID-19
CPT/HCPCS: 36415; 74177; 80053; 81001; 83690; 84484; 85025; 85610; 85730; 86850; 86900; 86901; 93005; 96361; 96374; 99284; A9270; C9113; J3490; J7030; Q9967; 93010

== ENCOUNTER 2023-09-26 13:16 | Emergency (ER) | payer BC ==
[2023-09-26] MEDS: Sodium Chloride 0.9% 1,000 ML IV ONE (14:24)
[2023-09-26] MEDS: Alum Hydro/Mag Hydro/Simeth XS 15 ML, Lidocaine 2% 5 ML PO ONE (14:24)
[2023-09-26] MEDS: Sodium Chloride 0.9% 2.5 ML Syringe FLUSH PRN (14:24)
[2023-09-26] MEDS: Sodium Chloride 0.9% 10 ML Syringe FLUSH PRN (14:24)
[2023-09-26 14:31] LABS: BASOPHILS ABSOLUTE AUTO 0.04 K/uL (0.00-0.20); BASOPHILS PERCENT AUTO 0.5 % (0.0-1.0); EOSINOPHILS ABSOLUTE AUTO 0.08 K/uL (0.00-0.45); HEMATOCRIT 38.7 % (37.0-47.0); HEMOGLOBIN 13.7 g/dL (12.0-16.0); IMMATURE GRAN ABSOLUTE AUTO 0.02 K/uL (0.00-0.05); IMMATURE GRAN PERCENT AUTO 0.2 % (0.0-0.4); LYMPHOCYTES ABSOLUTE AUTO 1.36 K/uL (1.00-4.80); LYMPHOCYTES PERCENT AUTO 16.3 % (24.0-44.0); MEAN CORPUSCULAR HEMOGLOBIN 35.8 pg (28.0-32.0); MEAN CORPUSCULAR HGB CONC 35.4 g/dL (32.0-36.0); MONOCYTES ABSOLUTE AUTO 0.96 K/uL (0.00-0.80); MONOCYTES PERCENT AUTO 11.5 % (0.0-8.0); NEUTROPHILS ABSOLUTE AUTO 5.89 K/uL (1.80-7.70); NEUTROPHILS PERCENT AUTO 70.5 % (41.0-71.0); PLATELET COUNT,PLT 371 K/uL (150-400); RED BLOOD CELL COUNT 3.83 M/uL (4.10-5.30); WHITE BLOOD CELL COUNT,WBC 8.35 K/uL (3.9-11.3)
[2023-09-26 14:36] LABS: APPEARANCE,URINE SLT CLOUDY; BILIRUBIN,URINE NEGATIVE (NEGATIVE); COLOR,URINE YELLOW; GLUCOSE,URINE NEGATIVE (NEGATIVE); KETONES,URINE TRACE mg/dL (NEGATIVE); LEUKOCYTE ESTERASE,URINE NEGATIVE (NEGATIVE); NITRITE,URINE NEGATIVE (NEGATIVE); OCCULT BLOOD,URINE NEGATIVE (NEGATIVE); PH,URINE 7.5 (5.0-8.0); PROTEIN,URINE NEGATIVE (NEGATIVE); UROBILINOGEN,URINE 0.2 EU/dL (<2.0)
[2023-09-26 14:48] LABS: INR 1.22 (0.86-1.11)
[2023-09-26 15:11] LABS: A/G RATIO 1.1 (0.9-1.6); ALANINE AMINOTRANSFERASE,ALT 19 IU/L (14-63); ALBUMIN 3.9 g/dL (3.4-5.0); ALKALINE PHOSPHATASE 81 U/L (46-116); ASPARTATE AMNIOTRANSFERASE,AST 17 IU/L (15-37); BILIRUBIN TOTAL 0.4 mg/dL (0.2-1.0); BLOOD UREA NITROGEN,BUN 10 mg/dL (7.0-18.0); CALCIUM 10.1 mg/dL (8.5-10.1); CARBON DIOXIDE,CO2 28.1 mmol/L (21.0-32.0); CHLORIDE,CL 96 mmol/L (98-107); CREATININE 0.7 mg/dL (0.6-1.0); ETHANOL BLOOD MEDICAL <3 mg/dL; GLUCOSE RANDOM 101 mg/dL (74-106); LIPASE 145 U/L (16-77); POTASSIUM,K 3.8 mmol/L (3.5-5.1); PROTEIN TOTAL,TP 7.5 g/dL (6.4-8.2); SODIUM,NA 135 mmol/L (136-145)
[2023-09-26 15:21] LABS: ESTIMATED GFR 101 mL/min (>60)
[2023-09-26] MEDS: Acetaminophen/HYDROcodone 325-5 MG Tab PO ONE (16:14)
== END 2023-09-26 17:05 | disposition home or self-care (01) ==
LOC: MW.ED 13:16
DX: R10.13 Epigastric pain (principal); I10 Essential (primary) hypertension; E78.00 Pure hypercholesterolemia, unspecified; Z86.16 Personal history of COVID-19; Z79.899 Other long term (current) drug therapy; Z88.2 Allergy status to sulfonamides
CPT/HCPCS: 36415; 80053; 80307; 81003; 83605; 83690; 84484; 85025; 85610; 93005; 96360; 99284; A9270; J3490; J7030; 93010; 99283

== ENCOUNTER 2023-11-09 10:31 | Day surgery (SDC) | payer BC ==
[~2023-11-09 10:31] MED LIST changes: -Lactated Ringers 1,000 ML IV SCH; +Sodium Chloride 0.9% 10 ML Syringe FLUSH PRN; +Sodium Chloride 0.9% 2.5 ML Syringe FLUSH PRN; +Sodium Chloride 0.9% 20 ML SDV IV PRN
[2023-11-09] MEDS: Lactated Ringers 1,000 ML IV SCH (11:00)
[2023-11-09] MEDS ORDERED: Propofol 200 MG/20 ML SDV ONE (11:01)
[2023-11-09] MEDS ORDERED: Lidocaine 2% 5 ML SDV ONE (11:29)
== END 2023-11-09 13:28 | disposition home or self-care (01) ==
LOC: MW.SDS 10:31
PROVIDERS: ATTEND Surgery
DX: K31.7 Polyp of stomach and duodenum (principal); K26.9 Duodenal ulcer, unspecified as acute or chronic, without hemorrhage or perforation; K21.9 Gastro-esophageal reflux disease without esophagitis; I10 Essential (primary) hypertension; E78.00 Pure hypercholesterolemia, unspecified; F32.A Depression, unspecified; K85.90 Acute pancreatitis without necrosis or infection, unspecified; F17.210 Nicotine dependence, cigarettes, uncomplicated; Z79.899 Other long term (current) drug therapy; Z88.2 Allergy status to sulfonamides
CPT/HCPCS: 43239; J2704; J7120; 00731; J3490

== ENCOUNTER 2023-12-04 14:41 | Emergency (ER) | payer BC ==
[2023-12-04 15:25] LABS: BASOPHILS ABSOLUTE AUTO 0.03 K/uL (0.00-0.20); BASOPHILS PERCENT AUTO 0.3 % (0.0-1.0); EOSINOPHILS ABSOLUTE AUTO 0.04 K/uL (0.00-0.45); EOSINOPHILS PERCENT AUTO 0.4 % (0.0-6.0); HEMATOCRIT 36.9 % (37.0-47.0); HEMOGLOBIN 12.8 g/dL (12.0-16.0); IMMATURE GRAN ABSOLUTE AUTO 0.03 K/uL (0.00-0.05); IMMATURE GRAN PERCENT AUTO 0.3 % (0.0-0.4); LYMPHOCYTES ABSOLUTE AUTO 1.47 K/uL (1.00-4.80); LYMPHOCYTES PERCENT AUTO 13.2 % (24.0-44.0); MEAN CORPUSCULAR HEMOGLOBIN 33.1 pg (28.0-32.0); MEAN CORPUSCULAR HGB CONC 34.7 g/dL (32.0-36.0); MEAN CORPUSCULAR VOLUME 95.3 fL (83.0-99.0); MEAN PLATELET VOLUME 9.1 fL (9.4-12.3); MONOCYTES PERCENT AUTO 8.1 % (0.0-8.0); NEUTROPHILS ABSOLUTE AUTO 8.66 K/uL (1.80-7.70); NEUTROPHILS PERCENT AUTO 77.7 % (41.0-71.0); PLATELET COUNT,PLT 373 K/uL (150-400); RED BLOOD CELL COUNT 3.87 M/uL (4.10-5.30); WHITE BLOOD CELL COUNT,WBC 11.13 K/uL (3.9-11.3)
[2023-12-04] MEDS: Ondansetron 4 MG/2 ML SDV IVPUSH ONE ×2 (15:29→23:12)
[2023-12-04] MEDS: Sodium Chloride 0.9% 1,000 ML IV ONE (15:29)
[2023-12-04] MEDS: Morphine 4 MG/ML Syringe IVPUSH ONE ×2 (15:29→23:12)
[2023-12-04 15:51] LABS: A/G RATIO 1.4 (0.9-1.6); ALBUMIN 4.2 g/dL (3.4-5.0); BILIRUBIN TOTAL 0.5 mg/dL (0.2-1.0); CALCIUM 9.4 mg/dL (8.5-10.1); CARBON DIOXIDE,CO2 27.3 mmol/L (21.0-32.0); CREATININE 0.7 mg/dL (0.6-1.0); EST CRCL DRUG DOSING (CG) 58.37 mL/min; MAGNESIUM 1.9 mg/dL (1.8-2.4); PROTEIN TOTAL,TP 7.3 g/dL (6.4-8.2)
[2023-12-04] MEDS: Iopamidol 755 MG/ML 500 ML Multipack Bottle IVPUSH STA (17:11)
[2023-12-04] MEDS: Morphine 2 MG/ML SYRINGE IVPUSH ONE (18:46)
[2023-12-04] MEDS: Sodium Chloride 0.9% 500 ML IV ONE (18:46)
[2023-12-04 19:23] LABS: APPEARANCE,URINE CLEAR; BILIRUBIN,URINE NEGATIVE (NEGATIVE); COLOR,URINE YELLOW; GLUCOSE,URINE NEGATIVE (NEGATIVE); KETONES,URINE NEGATIVE (NEGATIVE); LEUKOCYTE ESTERASE,URINE NEGATIVE (NEGATIVE); NITRITE,URINE NEGATIVE (NEGATIVE); OCCULT BLOOD,URINE NEGATIVE (NEGATIVE); PROTEIN,URINE NEGATIVE (NEGATIVE); UROBILINOGEN,URINE 0.2 EU/dL (<2.0)
== END 2023-12-05 00:07 ==
LOC: MW.ED 14:41
DX: K86.3 Pseudocyst of pancreas (principal); E78.00 Pure hypercholesterolemia, unspecified; I10 Essential (primary) hypertension; K21.9 Gastro-esophageal reflux disease without esophagitis; Z75.8 Other problems related to medical facilities and other health care; Z88.2 Allergy status to sulfonamides; Z79.899 Other long term (current) drug therapy
CPT/HCPCS: 36415; 74177; 80053; 81003; 83690; 83735; 85025; 96361; 96374; 96375; 96376; 99285; J2270; J2405; J7030; Q9967